=== PATIENT | female | born 1965 | race Caucasian/White ===

== ENCOUNTER → 2019-09-16 12:24 | Outpatient (BNVA) | payer MEDICARE, MEDICAID, SELFPAY | PROVIDERS: Family Provider Family Medicine; Visit Provider Specialist | DX: G40.909 Epilepsy, unspecified, not intractable, without status epilepticus (principal); F41.9 Anxiety disorder, unspecified; F32.9 Major depressive disorder, single episode, unspecified | CPT/HCPCS: 99213 ==

== ENCOUNTER → 2019-09-18 10:20 | Outpatient (BNVA) | payer MEDICARE, MEDICAID, SELFPAY | PROVIDERS: Family Provider Family Medicine; Visit Provider Nurse Practitioner Psychiatric/Mental Health | DX: F33.41 Major depressive disorder, recurrent, in partial remission (principal); F41.8 Other specified anxiety disorders; F80.0 Phonological disorder; F41.1 Generalized anxiety disorder | CPT/HCPCS: 99214 ==

== ENCOUNTER → 2019-11-28 07:39 | Outpatient (BNVA) | payer MEDICARE, MEDICAID, SELFPAY | PROVIDERS: Family Provider Family Medicine; Visit Provider Nurse Practitioner Psychiatric/Mental Health | DX: F33.41 Major depressive disorder, recurrent, in partial remission (principal); F80.0 Phonological disorder; F41.1 Generalized anxiety disorder; F41.8 Other specified anxiety disorders | CPT/HCPCS: 99214 ==

== ENCOUNTER → 2020-01-23 07:33 | Outpatient (BNVA) | payer MEDICARE, MEDICAID, SELFPAY | PROVIDERS: Family Provider Family Medicine; Visit Provider Nurse Practitioner Psychiatric/Mental Health | DX: F33.41 Major depressive disorder, recurrent, in partial remission (principal); F41.8 Other specified anxiety disorders; F80.0 Phonological disorder; F41.1 Generalized anxiety disorder | CPT/HCPCS: 99214 ==

== ENCOUNTER 2020-04-23 12:46 | Outpatient (CLI) | payer MEDICARE, MEDICAID, SELFPAY ==
--- NOTE | 2020-04-23 12:54 | MM_ITS ---
WS: [id number] SCREENING DIGITAL MAMMOGRAM WITH CAD HISTORY: SCREENING COMPARISON: 03/04/2019, 02/21/2018 and 02/16/2017 Bilateral CC and MLO views submitted. Computer aided detection analyzed. Breast composition: The breasts are heterogeneously dense, which may obscure small masses. Partially visualized 14 mm asymmetry in the lateral LEFT breast on the CC projection only. Not definitely prese nt on prior studies. No additional abnormalities are identified. MM/[place] [id number] IMPRESSION: BI-RADS: 0-Incomplete: Need additional imaging evaluation FOLLOW UP: Need Additional Imaging LEFT breast: Spot compression views (CC and MLO). True ML. Ultrasound to follow if abnormality persists.
== END 2020-04-23 12:47 | disposition home or self-care (01) ==
LOC: RADSHAW 12:49
PROVIDERS: PCP Family Medicine; Visit Provider Family Medicine
DX: Z12.31 Encounter for screening mammogram for malignant neoplasm of breast (principal); N64.89 Other specified disorders of breast
CPT/HCPCS: 77067

== ENCOUNTER → 2020-05-06 09:49 | Outpatient (BNVA) | payer MEDICARE, MEDICAID, SELFPAY | PROVIDERS: PCP Family Medicine; Visit Provider Nurse Practitioner Psychiatric/Mental Health | DX: F33.41 Major depressive disorder, recurrent, in partial remission (principal); F41.8 Other specified anxiety disorders; F80.0 Phonological disorder; F41.1 Generalized anxiety disorder | CPT/HCPCS: 99214 ==

== ENCOUNTER 2020-05-12 08:35 | Outpatient (CLI) | payer MEDICARE, MEDICAID, SELFPAY ==
--- NOTE | 2020-05-12 08:40 | US_ITS ---
WS: [id number] ADDITIONAL VIEWS LEFT MAMMOGRAM LEFT BREAST ULTRASOUND HISTORY: LT BREAST ASYMMETRY COMPARISON: 04/23/2020, 03/04/2019 LEFT MAMMOGRAM: Spot compression views and true ML. Lobulated soft tissue mass is partially obscured at 3:00 LEFT breast. Anterior mass measures 13 mm. LEFT BREAST ULTRASOUND 2-D and color Doppler imaging submitted. Soft tissue mass with a small cystic region at 3:00, 1 cm from the nipple. Marked increased vascularity. Soft tissue extends beyond the confines of the mass into the duct. Mass measures 1.3 x 1.6 x 1.2 cm. US/US breast LT limited* [id number] IMPRESSION: BI-RADS: 4-Suspicious Finding-Biopsy Should Be Considered FOLLOW UP: Biopsy Recommended Ultrasound-guided biopsy recommended LEFT breast mass at 3:00. Notified Hernán Driver MD at 05/12/2020 9:25 AM.
== END 2020-05-12 08:36 | disposition home or self-care (01) ==
LOC: RADSHAW 08:38
PROVIDERS: PCP Family Medicine; Visit Provider Family Medicine
DX: N64.89 Other specified disorders of breast (principal); N63.25 Unspecified lump in the left breast, overlapping quadrants
CPT/HCPCS: 76642; 77065

== ENCOUNTER 2020-05-29 12:08 | Outpatient (CLI) | payer MEDICARE, MEDICAID, SELFPAY ==
--- NOTE | 2020-05-29 12:15 | US_ITS ---
WS: [id number] ULTRASOUND-GUIDED LEFT BREAST BIOPSY CLINICAL INFORMATION: L BREAST MASS COMPARISON: None. FINDINGS: The procedure including risks, benefits, and complications were discussed with the patient who agreed to proceed. Using sterile technique patient was prepped and draped in the usual sterile fashion. Aft er 1% lidocaine utilizing real-time ultrasound guidance 5 14-gauge cores were obtained of the left br east lesion at the 3 o'clock position. Subsequently a titanium clip was placed in the biopsy cavity. No immediate complications. Pathology demonstrates Breast, left, 3 o'clock, biopsy: -Low grade papillary neoplasm. US/[place] [id number] IMPRESSION: 1. Uncomplicated ultrasound-guided left breast biopsy. 2. The pathology demonstrates low-grade papillary neoplasm. 3. Recommend wire localization with surgical excision. BI-RADS: 6-Known Biopsy-Proven Malignancy FOLLOW UP: Surgical Biopsy Recommended Recommend BREAST SURGERY consultation for excision of the papillary neoplasm.
== END 2020-05-29 12:09 | disposition home or self-care (01) ==
LOC: RAD 12:12
PROVIDERS: PCP Family Medicine; Visit Provider Family Medicine
DX: N63.25 Unspecified lump in the left breast, overlapping quadrants (principal)
CPT/HCPCS: 19083; 88305

== ENCOUNTER 2020-06-16 08:47 | Outpatient (CLI) | payer MEDICARE, MEDICAID, SELFPAY ==
--- NOTE | 2020-06-16 12:31 | ONC CON_ITS ---
Dr. Pacheco New Patient Note Patient: Kristyn Cason Unit #: [id number]: 1965 Dicatated By: Ian Pacheco M.D.Date of Visit: Jun 16, 2020 Onc MED New Patient/Consult Referring Physician: Dr. SEN QUIGLEY M.D. Chief Complaint: Breast cancer. 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 This patient has a history of cerebral palsy with bilateral occipital encephalomalacia, developmental disorder, and focus-based epilepsy. She also has congenital deafness. She presented with an abnormal screening mammogram. That study, from 04/23/2020, was BI-RADS 0, with finding of a partially visualized 14 mm asymmetry in the lateral left breast, noted on the CC projection only. Her diagnostic mammogram and left breast ultrasound on 05/12/2020 was BI-RADS 4, suspicious. The mammogram showed a lobulated soft tissue mass at the 3 o'clock position. By ultrasound, it showed increased vascularity with soft tissue extending beyond the confines of the mass into the duct. It measured 1.3 x 1.6 x 1.2 cm. On 05/29/2020 she underwent ultrasound directed core needle biopsy. Pathology was consistent with low-grade papillary neoplasm. The tumor was ER positive at 98%, ME positive at 75%, and negative for overexpression of HER-2/leslie, 1+ by IHC and amplification ratio by FISH of 0.9 with 1.8 HER-2 copies/cell. The Ki-67 was favorable at 2%. She has been feeling okay. She does complain that she is tired. She is fairly active. Her ECOG score is 2. She has good appetite. She has no fever. She recently started having hot flashes after stopping estradiol. It is unclear exactly how long she had been taking it. She has a prior history of hysterectomy, but without oophorectomy. She apparently did have one , which resulted in a miscarriage. She does not complain of shortness of breath or cough. She has had some pain in the upper left chest area. She has no GI/ complaints other than occasional, mild constipation. She has no significant joint or bone pain. She does not complain of headaches, though she does have a history of chronic migraine. She has no focal neurologic symptoms. She has anxiety and depression, which appears to be adequately managed with her medication. Past Medical History: Her medical history includes anxiety, cerebral palsy with bilateral occipital encephalomalacia, congenital deafness, developmental disorder, focus-based epilepsy, gastroesophageal reflux disease, hypertension, and migraine headaches. Past Surgical History: Her surgical/procedural history includes cholecystectomy, cochlear implant, and hysterectomy without oophorectomy for endometriosis. Medications: Acetaminophen Extra Strength 2 Tablet (of 500 mg) Oral PRN, Bismuth Subsalicylate 30 mL (of 525 mg/30mL) Suspension Oral PRN, Erythromycin 1 (0.5 %) Gel (jelly) Topical daily, lamoTRIgine ER 1 Tablet (of 300 mg) Tablet SR 24 HR Oral daily, Mirtazapine 1 Tablet (of 30 mg) Oral daily, Mucus+Chest Congestion 10 mL (of 200 mg/10mL) Liquid Oral PRN, Kathi-Colace 1 Tablet (of 8.6-50 mg) Oral PRN, Singulair 1 Tablet (of 10 mg) Oral daily, Venlafaxine HCl ER 1 Capsule (of 37.5 mg) Capsule SR 24 HR Oral b.i.d. Allergies: No Known Allergies. Social History: Ms. Cason is . She had smoked in the past. She quit in 1988. She has had just rare alcohol use. Family History: Father had diabetes and of heart attack. Mother had COPD. A brother committed suicide. There is no known family history of breast or ovarian cancer. Review Of Symptoms: Constitutional - She says she feels tired. Appetite is good and weight is stable. No fever. She has been having hot flashes since stopping estradiol. ECOG score is 2, Eyes - No change in vision, ENMT - She has congenital hearing loss. She has some allergy related sinus symptoms. No mouth sores. No sore throat or difficulty swallowing, Hematologic/Lymphatic - No abnormal bruising or bleeding, Respiratory - No shortness of breath. No cough. She sometimes has pain in her upper left chest. No hemoptysis, Cardiovascular - No angina pain. No palpitations, Gastrointestinal - No nausea or vomiting. No heartburn or acid reflux. She has occasional lower abdominal discomfort with constipation, relieved with stool softeners. No blood in the stool or black stools, Genitourinary (F) - No dysuria or hematuria. No urinary frequency. No urgency or incontinence, Musculoskeletal - No joint or bone pain, Integumentary - No skin rash, Neurologic - She has history of chronic migraine. No dizziness. No numbness or tingling. No other focal neurologic symptoms, Psychiatric - She is on medication for anxiety and depression. No insomnia. Vital Signs: Performed on Jun 16, 2020 10:26: 0, 27.33, 1.69 sq.m, 62.00 in, 95 % (LOW), 83 /min, 22 /min, 156/72 mm(hg) (HIGH), 97.7 F (LOW), and 149.4 lbs (HIGH). Physical Examination: Constitutional - She appears to be in good general health. She is hard of hearing, Eyes - Sclerae nonicteric. Conjunctivae clear, ENMT - No lesions noted in the oral cavity, Neck - No mass or thyromegaly, Hematologic/Lymphatic - No cervical or clavicular adenopathy, Respiratory - Lungs are clear with good air movement bilaterally, Cardiovascular - Heart rhythm is regular. There is no murmur, gallop, or rub noted, Breasts - There are no breast masses noted. There is no axillary adenopathy, Abdomen - Soft. Liver and spleen are not enlarged. There is no abdominal mass or ascites noted and there is no inguinal adenopathy, Back/Spine - No spine or CVA tenderness noted, Extremities - No edema. Pedal pulses are palpable bilaterally, Integumentary - No rashes. No suspicious skin lesions noted, Neurologic - No focal neurologic deficits noted. Impression: 1. 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 2. She underwent ultrasound directed core needle biopsy of the left breast on 05/29/2020. Her other medical illnesses include: 3. Hypertension. 4. GERD. 5. History of chronic migraine. 6. Cerebral palsy with bilateral occipital encephalomalacia. 7. Developmental disorder. 8. Focus-based epilepsy. 9. Congenital deafness. 10. Anxiety/depression. Plan: The pathology results and clinical implications were discussed with the patient and with her legal guardian. After discussion with the pathologist, this does not appear to represent invasive breast cancer. As such, her management will be limited to lumpectomy alone, though any further hormone replacement therapy should be avoided. I will arrange for referral to Dr. Rivera for the lumpectomy. She can just continue regular follow-up with Dr. Quigley and with Dr. Rivera. I will plan to see her again only as needed. Signed By: Ian Pacheco M.D. <<Signature on File>>
== END 2020-06-16 08:48 | disposition home or self-care (01) ==
LOC: ONCMED 08:53
PROVIDERS: PCP Family Medicine; Visit Provider Internal Medicine Hematology & Oncology
DX: C50.812 Malignant neoplasm of overlapping sites of left female breast (principal); Z17.0 Estrogen receptor positive status [ER+]; I10 Essential (primary) hypertension; K21.9 Gastro-esophageal reflux disease without esophagitis; G43.909 Migraine, unspecified, not intractable, without status migrainosus; G80.9 Cerebral palsy, unspecified; Q04.8 Other specified congenital malformations of brain; F89 Unspecified disorder of psychological development; G40.109 Localization-related (focal) (partial) symptomatic epilepsy and epileptic syndromes with simple partial seizures, not intractable, without status epilepticus; H90.3 Sensorineural hearing loss, bilateral; F41.9 Anxiety disorder, unspecified; F32.9 Major depressive disorder, single episode, unspecified
CPT/HCPCS: 99205

== ENCOUNTER → 2020-07-11 09:29 | Outpatient (BNVA) | payer MEDICARE, MEDICAID, SELFPAY | PROVIDERS: PCP Family Medicine; Visit Provider Surgery | DX: Z20.828 Contact with and (suspected) exposure to other viral communicable diseases (principal); Z01.812 Encounter for preprocedural laboratory examination | CPT/HCPCS: 87635 ==

== ENCOUNTER 2020-07-16 07:15 | Day surgery (SDC) | payer MEDICARE, MEDICAID, SELFPAY ==
[2020-07-15 13:34] VITALS: BMI 27.8
--- NOTE | 2020-07-16 | US_ITS ---
WS: [id number] ULTRASOUND-GUIDED LEFT BREAST NEEDLE LOCALIZATION HISTORY: Mass LEFT breast 3:00. Procedure, risks and complications were explained to the patient. Consent is obtained. Skin is cleansed with ChloraPrep and anesthetized with 1% buffered lidocaine. Needle and guidewire pl aced to the area of concern with no complications. Ultrasound guidance performed during the needle lo calization. Guidewire is left within the lesion. Guidewire secured and no complications encountered. Patient is being transported to the OR suite. Ultrasound LEFT breast specimen reveals the mass is present and the localization wire with tip. RECOMMENDATIONS: Follow-up with Dr. Rivera. US/US breast surgical specimen IMPRESSION: 1. Uncomplicated LEFT breast wire localization of the mass at 3:00. 2. Breast mass is within the specimen. PATHOLOGY RESULTS: Invasive papillary carcinoma. Margins are negative. Lymphova scular invasion is identified.
--- NOTE | 2020-07-16 | US_ITS ---
WS: [id number] ULTRASOUND-GUIDED LEFT BREAST NEEDLE LOCALIZATION HISTORY: Mass LEFT breast 3:00. Procedure, risks and complications were explained to the patient. Consent is obtained. Skin is cleansed with ChloraPrep and anesthetized with 1% buffered lidocaine. Needle and guidewire pl aced to the area of concern with no complications. Ultrasound guidance performed during the needle lo calization. Guidewire is left within the lesion. Guidewire secured and no complications encountered. Patient is being transported to the OR suite. Ultrasound LEFT breast specimen reveals the mass is present and the localization wire with tip. RECOMMENDATIONS: Follow-up with Dr. Rivera. US/[place] [id number] IMPRESSION: 1. Uncomplicated LEFT breast wire localization of the mass at 3:00. 2. Breast mass is within the specimen. PATHOLOGY RESULTS: Invasive papillary carcinoma. Margins are negative. Lymphova scular invasion is identified.
--- NOTE | 2020-07-16 | US_ITS ---
WS: [id number] ULTRASOUND-GUIDED LEFT BREAST NEEDLE LOCALIZATION HISTORY: Mass LEFT breast 3:00. Procedure, risks and complications were explained to the patient. Consent is obtained. Skin is cleansed with ChloraPrep and anesthetized with 1% buffered lidocaine. Needle and guidewire pl aced to the area of concern with no complications. Ultrasound guidance performed during the needle lo calization. Guidewire is left within the lesion. Guidewire secured and no complications encountered. Patient is being transported to the OR suite. Ultrasound LEFT breast specimen reveals the mass is present and the localization wire with tip. RECOMMENDATIONS: Follow-up with Dr. Rivera. US/US breast surgical specimen IMPRESSION: 1. Uncomplicated LEFT breast wire localization of the mass at 3:00. 2. Breast mass is within the specimen. PATHOLOGY RESULTS: Invasive papillary carcinoma. Margins are negative. Lymphova scular invasion is identified.
[2020-07-16 07:34] VITALS: BP 155/83; PULSE 75; RESP 16; TEMP 36.4; O2SAT 95
[2020-07-16] MEDS: sodium chloride 0.9% 1,000 ML 30 ML IV (07:52)
--- NOTE | 2020-07-16 08:55 | W.PM.OPSUD ---
Surgery/Procedure H&P Update DATE OF PROCEDURE: July 16, 2020 DATE H&P PERFORMED: 06/22/20 H&P UPDATE INFORMATION: No changes to prior documentation PLANNED PROCEDURE: Operation Date: 07/16/20 09:40 Proposed Procedures p Left breast lumpectomy following needle localization R92.8 [id number](Left) - Raul Rivera MD s Breast Biopsy Needle Localization(Left) - Raul Rivera MD
--- NOTE | 2020-07-16 09:07 | ANES.PREANE2 ---
Pre-Anesthetic Assessment Pre-Anesthetic Assessment: Height/Weight: Height 1.57 m Weight 68.946 kg Temp Pulse Resp BP Pulse Ox 97.6 F 75 16 155/83 95 07/16/20 07:34 07/16/20 07:34 07/16/20 07:34 07/16/20 07:34 07/16/20 07:34 Preop Diagnosis: Breast lump Proposed Procedure: Operation Date: 07/16/20 09:40 Proposed Procedures p Left breast lumpectomy following needle localization R92.8 88442(Left) - Raul Rivera MD s Breast Biopsy Needle Localization(Left) - Raul Rivera MD Familial anesthetic complications: None, per caregiver Hx obtained from Lynda malin, caregiver Was Beta Heath taken within 24 hours: N/A Last intake: Intake Last Liquid Date 07/15/20 Last Liquid Time 19:00 Last Solid Date 07/15/20 Last Solid Time 19:00 Social: Social History: No alcohol and No tobacco Exam: Pre-Anes Outpt Exam: alert, oriented x 3, clear to auscultation bilaterally and regular rate & rhythm Airway: Cervical ROM: WNL Additional comments: caregiver unsure of status of patient's teeth Neuropsych: Neuropsych: Anxiety, Depression and Seizure Comments: cerebral palsy Anesthetic Plan: ASA status: 3 Anesthesia: General Risk of > 500 ml blood loss (7ml/kg in children): No Meds/Allergies Current Medications: Current Medications Generic Name Dose Route Start Last Admin Trade Name Freq PRN Reason Stop Dose Admin Sodium Chloride 1,000 mls @ 30 ml s/hr 07/15/20 09:15 07/16/20 07:52 Sodium Chloride 0.9% IV 07/16/20 09:14 30 mls/hr .Q24H VINNIE Administration PFSH Anesthesia PFSH: Medical History (Updated 09/18/19 @ 11:21 by NORM Miller) Generalized anxiety disorder Impaired speech articulation Major depressive disorder, recurrent episode, in partial remission with anxious distress Family History Denies family history of Diabetes CAD (coronary artery disease) Cancer Hypertension Stroke Social History (Updated 09/18/19 @ 10:58 by Luci Diaz LPN) Smoking and tobacco status: former smoker Alcohol intake: never History of recent travel: No Data Anesthesia Cardiac Studies: No Data to Display
--- NOTE | 2020-07-16 10:47 | P.OP_ITS ---
Operative Report Date of procedure: July 16, 2020 Pre-op Diagnosis: Papillary lesion of left breast. Post-op diagnosis: same Procedure Done: Left breast lumpectomy following preoperative needle localization. Specimens removed/disposition: Left breast lumpectomy specimen. Long suture anteriorly, short suture medially. Surgeon: Raul Rivera Anesthesia: MAC Estimated blood loss (mL): 5 Complications: None. Condition: stable Disposition: same day Procedure: The patient was brought to the operating room and was placed in a supine position on the operating room table. A monitored anesthetic was induced. The left breast was prepped and draped in a sterile fashion, taking care not to disturb the localization wire which had been placed in radiology preoperatively. A combination of 1% lidocaine and 0.5% bupivacaine with 1- 200,000 parts epinephrine was used for local anesthesia throughout the procedure. A somewhat oblique incision was carried out lateral to the areola but medial to the insertion point of the localization wire. Cautery was used to enter the breast tissue and the localization wire was brought into the incision. The wire was grasped with the surrounding breast tissue using an Allis clamp and a combination of cautery and sharp dissection were used to remove the tissue around the wire. There was quite a bit of fibrocystic appearing tissue med ially. The specimen was eventually completely excised with the wire intact. The specimen was marked with a long suture anteriorly and a short suture medially for pathologic orientation. The wound was irrigated with saline and some small bleeding points were controlled with cautery. The skin was reapproximated using a running subcuticular suture of 4-0 Vicryl. Benzoin and Steri-Strips were placed over the incision and a sterile bandage followed. The patient was taken to the recovery area in stable condition postoperatively.
[2020-07-16 10:53] VITALS: BP 144/81; PULSE 80; RESP 16; TEMP 36.1; O2SAT 94
[2020-07-16 11:03] VITALS: BP 174/95; PULSE 81; RESP 18; O2SAT 95
== END 2020-07-16 11:25 | disposition home or self-care (01) ==
PROVIDERS: PCP Family Medicine; Visit Provider Surgery
PROC: (CPT 19301; principal; 2020-07-16 09:40)
DX: C50.912 Malignant neoplasm of unspecified site of left female breast (principal); F41.9 Anxiety disorder, unspecified; F33.9 Major depressive disorder, recurrent, unspecified; Z87.891 Personal history of nicotine dependence
CPT/HCPCS: 19301; 12345; 19285; 88305; J0690; J2704; J3010; J3490; J7030

== ENCOUNTER → 2020-09-11 10:49 | Outpatient (BNVA) | payer MEDICARE, MEDICAID, SELFPAY | PROVIDERS: PCP Family Medicine; Visit Provider Surgery | DX: Z20.822 Contact with and (suspected) exposure to COVID-19 (principal) | CPT/HCPCS: 87635 ==

== ENCOUNTER → 2020-09-14 10:13 | Outpatient (BNVA) | payer MEDICARE, MEDICAID, SELFPAY | PROVIDERS: Family Provider Family Medicine; Visit Provider Specialist | DX: G40.109 Localization-related (focal) (partial) symptomatic epilepsy and epileptic syndromes with simple partial seizures, not intractable, without status epilepticus (principal); Z87.891 Personal history of nicotine dependence | CPT/HCPCS: 99213 ==

== ENCOUNTER 2020-09-17 08:26 | Day surgery (SDC) | payer MEDICARE, MEDICAID, SELFPAY ==
--- NOTE | 2020-09-17 08:46 | NM_ITS ---
WS: [id number] SENTINEL NODE TECHNIQUE: sentinel node injection CLINICAL INFORMATION: Breast biopsy COMPARISON: None. PROCEDURE: The procedure including risks, benefits, and complications were discussed; the patient agr eed to proceed. Patient was prepped and draped in usual sterile fashion. Subsequently, 1% lidocaine p reservative-free was administered at the 12:00, 3:00, 6:00, and 9:00 o'clock positions for local anes thesia. Subsequently, 4 aliquots of filtered technetium 99m sulfur colloid was injected into the subc utaneous soft tissues. A total dose of 1.1 mCi was administered. Patient tolerated the procedure well with no immediate complications. MD/MD sentinel node inject [id number] IMPRESSION: Uncomplicated LEFT breast sentinel node injection with a total dose of 1.1 mCi.
[2020-09-17 08:51] VITALS: TEMP 36.8
[2020-09-17 08:54] VITALS: BP 182/84; PULSE 82; RESP 18; TEMP 36.8; O2SAT 96
[2020-09-17 09:19] VITALS: BMI 26.3
[2020-09-17] MEDS: sodium chloride 0.9% 1,000 ML 30 ML IV (09:20)
--- NOTE | 2020-09-17 09:43 | W.PM.OPSUD ---
Surgery/Procedure H&P Update DATE OF PROCEDURE: September 17, 2020 DATE H&P PERFORMED: 09/08/20 H&P UPDATE INFORMATION: No changes to prior documentation PREOP DIAGNOSIS: Invasive papillary carcinoma of left breast. PLANNED PROCEDURE: Operation Date: 09/17/20 10:45 Proposed Procedures p left Sentinal Lymph Node Biopsy [id number] C50.412(Left) - Raul Rivera MD
--- NOTE | 2020-09-17 10:23 | ANES.PREANE2 ---
Pre-Anesthetic Assessment Pre-Anesthetic Assessment: Height/Weight: Height 1.57 m Weight 65.317 kg Temp Pulse Resp BP Pulse Ox 98.2 F 82 18 182/84 96 09/17/20 08:54 09/17/20 08:54 09/17/20 08:54 09/17/20 08:54 09/17/20 08:54 Preop Diagnosis: Invasive papillary carcinoma of left breast. Proposed Procedure: Operation Date: 09/17/20 10:45 Proposed Procedures p left Sentinal Lymph Node Biopsy 58226 C50.412(Left) - Raul Rivera MD Was Beta Heath taken within 24 hours: N/A Last intake: Intake Last Liquid Date 09/16/20 Last Liquid Time 19:00 Last Solid Date 09/16/20 Last Solid Time 15:00 Social: Social History: No alcohol and No tobacco Exam: Pre-Anes Outpt Exam: alert, oriented x 3, clear to auscultation bilaterally and regular rate & rhythm Airway: Submandibular: WNL Cervical ROM: WNL MP: 3 Dentition: Full Pulmonary: Pulmonary: Asthma Neuropsych: Neuropsych: Anxiety, Depression and Seizure Comments: Speech issue Anesthetic Plan: ASA status: 3 Anesthesia: MAC Risk of > 500 ml blood loss (7ml/kg in children): No Meds/Allergies Current Medications: Current Medications Generic Name Dose Route Start Last Admin Trade Name Freq PRN Reason Stop Dose Admin Sodium Chloride 1,000 mls @ 30 ml s/hr 09/17/20 08:45 09/17/20 09:20 Sodium Chloride 0.9% IV 09/18/20 08:44 30 mls/hr .Q24H VINNIE Administration PFSH Anesthesia PFSH: Medical History Generalized anxiety disorder Impaired speech articulation Major depressive disorder, recurrent episode, in partial remission with anxious distress Family History Denies family history of Diabetes CAD (coronary artery disease) Cancer Hypertension Stroke Social History Smoking and tobacco status: former smoker Alcohol intake: never History of recent travel: No Data Anesthesia Cardiac Studies: No Data to Display
--- NOTE | 2020-09-17 10:41 | PM.OP ---
Operative Report Date of procedure: September 17, 2020 Pre-op Diagnosis: Invasive papillary carcinoma of left breast. Post-op diagnosis: same Procedure Done: Left axillary sentinel lymph node biopsy. Specimens removed/disposition: Left axillary sentinel lymph node(s). Surgeon: Raul Rivera Anesthesia: MAC Estimated blood loss (mL): 3 Complications: None. Condition: stable Disposition: same day Procedure: The patient was brought to the operating room and was placed in a supine position on the operating room table. The patient had undergone radioactive tracer injection in radiology preoperatively. A monitored anesthetic was induced. The left axilla was prepped and draped in a sterile fashion. The gamma probe was used to find the hot spot in the axilla. A combination of 1% lidocaine and 0.5% bupivacaine with 1-200,000 parts epinephrine was used for local anesthesia throughout the procedure. A curvilinear incision was carried out over the hot spot of the axilla centrally just underneath the hairbearing area. Cautery and blunt dissection were used to traverse the subcutaneous tissue and the axilla was entered. Using a combination of inspection and the gamma probe, the hot lymph node was found and was completely removed using blunt dissection and cautery. The lymph node registered counts of 132 on the field. Further inspection of the axilla with the gamma probe revealed counts less than 12. Even upon inspecting this area it appeared that there was lymphatic channels that were traveling up to the lymph node that was already removed. The wound was irrigated with saline. A suture of 3-0 Vicryl was used to bring the deeper tissue together and the skin was approximated using a running subcuticular suture of 4-0 Vicryl. Benzoin and Steri-Strips were placed over the wound and a sterile bandage followed. The patient was taken to the recovery area in stable condition postoperatively.
[2020-09-17 11:22] VITALS: BP 146/91; PULSE 96; RESP 18; TEMP 36.8; O2SAT 100
[2020-09-17 11:44] VITALS: BP 140/80; PULSE 78; RESP 18; TEMP 36.8; O2SAT 97
--- NOTE | 2020-09-17 12:06 | ANE.PACU2 ---
Inpatient post-anesthesia follow up: Airway intact: Yes Vital signs: Temperature 98.2 F Pulse Rate 78 Respiratory Rate 18 Blood Pressure 140/80 Pulse Oximetry 97 Oxygen Delivery Me thod Room Air Oxygen Flow Rate Fraction of Inspir ed Oxygen Hydration adequate: Yes Nausea and vomiting: No Pain level: 1 Mental status: Baseline
== END 2020-09-17 12:10 | disposition home or self-care (01) ==
PROVIDERS: Visit Provider Surgery
PROC: (CPT 38500; principal; 2020-09-17 10:45)
DX: C50.412 Malignant neoplasm of upper-outer quadrant of left female breast (principal); J45.909 Unspecified asthma, uncomplicated; Z87.891 Personal history of nicotine dependence
CPT/HCPCS: 38500; 12345; 38792; 88305; 96365; A9541; J0690; J3010; J3490; J7030

== ENCOUNTER 2020-10-15 14:26 | Outpatient (CLI) | payer MEDICARE, MEDICAID, SELFPAY ==
--- NOTE | 2020-10-15 15:09 | N.ONRAD NP_ITS ---
Radiation Oncology Consultation Patient Name: Kristyn Calderon Date of : 1965 Date of Service: 10/15/2020 Attending Physician: Jb Pike M.D. Kristyn Calderon was seen in consultation this afternoon at the request of Ian Pacheco M.D. for consideration of adjuvant radiotherapy for the management of her recently diagnosed early stage breast cancer. A screening mammogram (personally reviewed in [facility]) performed in July 2020 identified a 1.4 cm asymmetry in the lateral aspect of the left breast. Diagnostic mammography confirmed a persistent mass in the upper-outer quadrant of the left breast. Ultrasonography demonstrated at the 3 o'clock position in the left breast, 1 cm from the nipple, a mass measuring 1.3 cm x 1.6 cm x 1.2 cm. An ultrasound-guided biopsy completed on May 29, 2020 diagnosed a low-grade papillary neoplasm. The breast cancer profile was positive for estrogen receptor (98%), and progesterone receptor (75%), and negative for HER-2 (ratio of 0.9). The Ki-67 was 2%. A left partial mastectomy was performed by Tyshawn Rivera M.D. on July 16, 2020. The pathology report obtained in [facility] (and directly canvassed by [facility]) identified an 8 mm invasive papillary carcinoma. Surgical margins were negative. A sentinel lymph node biopsy was completed on September 17, 2020 harvesting one lymph node that was negative for metastasis. The patient presents for evaluation regarding adjuvant radiotherapy. I discussed the [place] [employer] on [employer] Staging and specifically the patient's pathologic stage IA (T1bN0) breast cancer, I also reviewed the classic study by the NSABP comparing mastectomy, lumpectomy, and lumpectomy with radiotherapy and the Early Breast Cancer Trialist Collaborative Group meta-analysis. She is aware that the addition of radiotherapy to lumpectomy provides improvement in local control and overall survival. Prior to beginning treatment, a planning CT scan will be acquired to delineate the clinical target volume. I anticipate a three week course of radiotherapy to the breast. The patient and her guardian have verbalized understanding and would like to proceed as recommended. Signed by: Dr. Jb Pike 10/15/2020 3:06:53 PM
== END 2020-10-15 14:27 | disposition home or self-care (01) ==
PROVIDERS: Visit Provider Radiology Radiation Oncology
DX: C50.412 Malignant neoplasm of upper-outer quadrant of left female breast (principal); Z17.0 Estrogen receptor positive status [ER+]; Z90.12 Acquired absence of left breast and nipple
CPT/HCPCS: 99215

== ENCOUNTER 2020-11-04 05:39 | Outpatient (RCR) | payer MEDICARE, MEDICAID, SELFPAY ==
--- NOTE | 2020-10-20 | CT_ITS ---
Radiation Therapy Planning CT images; total exam DLP: 484.75 mGy-cm MTDD
--- NOTE | 2020-10-26 13:46 | ONCRAD TMN_ITS ---
Radiation Oncology Treatment Management Note Patient Name: Kristyn Calderon Date of : 1965 Date of Service: 10/26/2020 Attending Physician: Jb Pike M.D. Kristyn Calderon is a 55 year-old white female diagnosed with a pathologic stage IA (T1bN0) low-grade invasive papillary carcinoma of the upper-outer quadrant of the left breast. The breast cancer profile was positive for estrogen receptor, progesterone receptor, and negative for HER-2. The Ki-67 was 2%. She has received 2.7 Gy of a prescribed 40 Gy delivered with a 3D conformal radiotherapy plan utilizing opposed tangential portal hoffman with mixed photon energies and a dynamic wedge. Upon review of systems, she denied any breast complaints to radiotherapy. On physical examination, the patient weighed 144 lbs. Her temperature was 98.1 ???F with a blood pressure of 157/81 mmHg. Her pulse was 67 bpm and her respiratory rate was 18. There was no erythema within the treatment hoffman of the left breast. Continue hypofractionated left breast radiotherapy as prescribed. Signed by: Dr. Jb Pike 10/26/2020 1:45:09 PM
--- NOTE | 2020-11-02 10:10 | ONCRAD TMN_ITS ---
Radiation Oncology Treatment Management Note Patient Name: Kristyn Calderon Date of : 1965 Date of Service: 11/02/2020 Attending Physician: Jb Pike M.D. Kristyn Calderon is a 55 year-old white female diagnosed with a pathologic stage IA (T1bN0) low-grade invasive papillary carcinoma of the upper-outer quadrant of the left breast. The breast cancer profile was positive for estrogen receptor, progesterone receptor, and negative for HER-2. The Ki-67 was 2%. She has received 16 Gy of a prescribed 40 Gy delivered with a 3D conformal radiotherapy plan utilizing opposed tangential portal hoffman with mixed photon energies and a dynamic wedge. Upon review of systems, she denied any breast complaints to radiotherapy. On physical examination, the patient weighed 144 lbs. Her temperature was 98.3 ???F with a blood pressure of 139/76 mmHg. Her pulse was 72 bpm and her respiratory rate was 22. There was no erythema within the treatment hoffman of the left breast. Continue hypofractionated left breast radiotherapy as planned. Signed by: Dr. bJ Pike 11/02/2020 10:09:34 AM
== END 2020-11-04 23:59 | disposition home or self-care (01) ==
LOC: ONCMED 05:39
PROVIDERS: Visit Provider Radiology Radiation Oncology
DX: Z51.0 Encounter for antineoplastic radiation therapy (principal); C50.412 Malignant neoplasm of upper-outer quadrant of left female breast; Z17.0 Estrogen receptor positive status [ER+]
CPT/HCPCS: 77280; 77295; 77300; 77334; 77387; 77412

== ENCOUNTER 2020-11-27 05:56 | Outpatient (RCR) | payer MEDICARE, MEDICAID, SELFPAY ==
--- NOTE | 2020-11-09 10:01 | ONCRAD TMN_ITS ---
Radiation Oncology Treatment Management Note Patient Name: Kristyn Calderon Date of : 1965 Date of Service: 11/09/2020 Attending Physician: Jb Pike M.D. Kristyn Calderon is a 55 year-old white female diagnosed with a pathologic stage IA (T1bN0) low-grade invasive papillary carcinoma of the upper-outer quadrant of the left breast. The breast cancer profile was positive for estrogen receptor, progesterone receptor, and negative for HER-2. The Ki-67 was 2%. She has received 29.3 Gy of a prescribed 40 Gy delivered with a 3D conformal radiotherapy plan utilizing opposed tangential portal hoffman with mixed photon energies and a dynamic wedge. Upon review of systems, she denied any breast complaints to radiotherapy. On physical examination, the patient weighed 144 lbs. Her temperature was 97.9 ???F with a blood pressure of 122/70 mmHg. Her pulse was 76 bpm and her respiratory rate was 18. There was no erythema within the treatment hoffman of the left breast. Continue hypofractionated left breast radiotherapy as prescribed. Signed by: Dr. Jb Pike 11/09/2020 9:59:58 AM
--- NOTE | 2020-11-27 09:53 | ONCRAD EPV_ITS ---
Radiation Oncology Follow-Up Note Patient Name: Kristyn Calderon Date of : 1965 Date of Service: 11/27/2020 Attending Physician: Jb Pike M.D. Kristyn Calderon returned to my office this morning for a routinely scheduled post radiotherapy follow-up appointment. She completed adjuvant left breast radiotherapy in November for the management of a pathologic stage IA (T1bN0) low-grade invasive papillary carcinoma of the upper-outer quadrant of the left breast. The breast cancer profile was positive for estrogen receptor, progesterone receptor, and negative for HER-2. The Ki-67 was 2%. Daily radiotherapy was administered between the dates of October 26, 2020 through November 13, 2020. A prescribed dose of 40 Gy was delivered in 15 fractions encompassing 19 elapsed days. On review of systems, she did not report any breast complaints. On physical examination, the patient weighed 143 lbs and her temperature was 98.6???F. Her blood pressure was 136/78 mmHg. The pulse was 67 bpm and her respiratory rate was 20 breaths per minute. Examination of the left breast did not reveal any significant erythema. In summary, Ms. Calderon returned for a routine post radiotherapy follow-up. She will continue follow-up as scheduled with her medical oncologist. Signed by: Dr. Jb Pike 11/27/2020 9:51:54 AM
== END 2020-12-04 23:59 | disposition home or self-care (01) ==
LOC: ONCMED 05:56
PROVIDERS: Visit Provider Radiology Radiation Oncology
DX: Z51.0 Encounter for antineoplastic radiation therapy (principal); C50.812 Malignant neoplasm of overlapping sites of left female breast; Z17.0 Estrogen receptor positive status [ER+]
CPT/HCPCS: 77014; 77336; 77387; 77412

== ENCOUNTER 2020-12-08 05:53 | Outpatient (RCR) | payer MEDICARE, MEDICAID, SELFPAY ==
[2020-12-08 09:49] LABS: Basophils % 0.6 %; Eosinophils # 0.1 10^3/uL (0.0-0.8); Eosinophils % 2.3 %; Hematocrit 45.7 % (37.0-47.0); Hemoglobin 14.7 g/dL (11.5-15.3); Lymphocytes # 1.4 10^3/uL (0.8-4.8); Lymphocytes % 28.9 %; Mean Corpuscular HGB Conc 32.2 g/dL (30.0-36.0); Mean Corpuscular Hemoglobin 28.2 pg (28.0-34.0); Mean Corpuscular Volume 87.5 fL (81-99); Mean Platelet Volume 9.2 fL (7.4-10.4); Monocytes # 0.5 10^3/uL (0.2-0.9); Monocytes % 9.3 %; Neutrophils # 2.83 10^3/uL (1.8-7.7); Neutrophils % 58.5 %; Nucleated Red Blood Cells % 0 %; Platelet Count 288 10^3/cmm (130-400); Red Blood Count 5.22 10^6/uL (4.1-5.3); White Blood Count 4.8 10^3/uL (4.0-10.0)
[2020-12-08 10:21] LABS: Alanine Aminotransferase 16 U/L (0-33); Albumin Level 4.2 g/dL (3.5-5.2); Alkaline Phosphatase 84 IU/L (35-105); Anion Gap 13.8 (5-19); Aspartate Amino Transferase 16 U/L (0-32); Blood Urea Nitrogen 14 mg/dL (6-20); Carbon Dioxide 26 mmol/L (22-29); Chloride 101 mmol/L (98-107); Follicle Stimulating Hormone 73.2 mIU/mL; Globulin 2.9 g/dL (1.3-4.6); Glomerular Filtration Rate 74.2 mL/min (90-130); Glucose 80 mg/dL (65-115); Luteinizing Hormone 35.5 mIU/mL (0.5-41.7); Osmolality Calculated 283 mOsm/kg (285-295); Potassium 3.8 mmol/L (3.5-5.1); Sodium 137 mmol/L (136-145); Total Bilirubin 0.3 mg/dL (0.15-1.2); Total Protein 7.1 g/dL (6.6-8.7)
--- NOTE | 2020-12-09 08:30 | ONC FU_ITS ---
Dr. Pacheco Patient Follow-Up Note Patient: Kristyn Cason Unit #: [id number]: 1965 Dicatated By: Ian Pacheco M.D.Date of Visit:December 08, 2020 Onc Med Follow-up/Prog Note Chief Complaint: Breast cancer. History of Present Illness: This is a 55 year-old woman with invasive papillary carcinoma of the left breast, stage IA (T1b, N0, M0), ER/CT positive and HER-2/leslie negative. She has a history of cerebral palsy with bilateral occipital encephalomalacia, developmental disorder, and focus-based epilepsy. She also has congenital deafness. She presented with an abnormal screening mammogram. That study, from 04/23/2020, was BI-RADS 0, with finding of a partially visualized 14 mm asymmetry in the lateral left breast, noted on the CC projection only. Her diagnostic mammogram and left breast ultrasound on 05/12/2020 was BI-RADS 4, suspicious. The mammogram showed a lobulated soft tissue mass at the 3 o'clock position. By ultrasound, it showed increased vascularity with soft tissue extending beyond the confines of the mass into the duct. It measured 1.3 x 1.6 x 1.2 cm. On 05/29/2020 she underwent ultrasound directed core needle biopsy. Pathology was consistent with low-grade papillary neoplasm. The tumor was ER positive at 98%, CT positive at 75%, and negative for overexpression of HER-2/leslie, 1+ by IHC and amplification ratio by FISH of 0.9 with 1.8 HER-2 copies/cell. The Ki-67 was favorable at 2%. I had seen her initially on 06/16/2020. Given the pathology findings, it appeared that her treatment could be limited to excision alone, and she underwent left breast lumpectomy on 07/16/2020. Pathology on the lumpectomy showed invasive papillary carcinoma measuring 0.8 cm in maximum diameter. The margins were free. In the setting of invasive papillary cancer, she was recommended to have axillary lymph node sampling, and she then underwent sentinel left axillary lymph node biopsy on 09/17/2020. There was no malignancy identified in 1 sentinel axillary lymph node. Pathologic staging was T1b, N0. She referred to Dr. Pike, and she then underwent radiation to the left breast. She completed treatment on 11/13/2020 to a total dose of 4000 cGy administered in 15 fractions. She tolerated the treatment well. She is seen for a follow-up visit. She has been feeling good. She really has no significant complaints. Her energy is okay. She is able to do light work. ECOG score is 1. She has good appetite. She has not had fever or night sweats. She does have some hot flashes. She has no shortness of breath, cough, or chest pain. She has no GI or complaints. She has no significant joint or bone pain. She does not complain of headache, and she has no focal neurologic symptoms. Medications: Acetaminophen Extra Strength 2 Tablet (of 500 mg) Oral PRN, Bismuth Subsalicylate 30 mL (of 525 mg/30mL) Suspension Oral PRN, Erythromycin 1 (0.5 %) Gel (jelly) Topical daily, lamoTRIgine ER 1 Tablet (of 300 mg) Tablet SR 24 HR Oral daily, Mirtazapine 1 Tablet (of 30 mg) Oral daily, Mucus+Chest Congestion 10 mL (of 200 mg/10mL) Liquid Oral PRN, Kathi-Colace 1 Tablet (of 8.6-50 mg) Oral PRN, Singulair 1 Tablet (of 10 mg) Oral daily, Venlafaxine HCl ER 1 Capsule (of 37.5 mg) Capsule SR 24 HR Oral b.i.d. Allergies: No Known Allergies. Vital Signs: Performed on December 08, 2020 08:57 Height - 62.00 in Weight - 140.6 lbs (LOW) BSA - 1.65 sq.m BMI - 25.72 Temperature - 97.5 F (LOW) Pulse - 83 /min Respiration - 18 /min BP - 126/79 mm(hg) O2 Sat - 96 % Pain - 0 Fatigue - 0 Physical Examination: Constitutional - She looks good generally, Eyes - Sclerae nonicteric. Conjunctivae clear, ENMT - No lesions noted in the oral cavity, Hematologic/Lymphatic - No cervical, clavicular, or axillary adenopathy, Respiratory - Lungs are clear with good air movement bilaterally, Cardiovascular - Heart rhythm is regular. There is no murmur, gallop, or rub noted, Abdomen - Soft. Liver and spleen are not enlarged. There is no abdominal mass or ascites noted and there is no inguinal adenopathy, Extremities - No edema, Neurologic - No focal neurologic deficits noted. Problem List: 1. Invasive papillary carcinoma of the left breast, stage IA (T1b, N0, M0), ER/CT positive and HER-2/leslie negative. She underwent ultrasound directed core needle biopsy of the left breast on 05/29/2020 followed by left breast lumpectomy on 07/16/2020 and sentinel left axillary lymph node biopsy on 09/17/2020. 2. She underwent radiation to the left breast, completed on 11/13/2020 to a total dose of 4000 cGy administered in 15 fractions. 3. Hypertension. 4. GERD. 5. History of chronic migraine. 6. Cerebral palsy with bilateral occipital encephalomalacia. 7. Developmental disorder. 8. Focus-based epilepsy. 9. Congenital deafness. 10. Anxiety/depression. Problems Addressed with this Encounter and Plan: Patient with invasive papillary carcinoma of the left breast, stage IA (T1b, N0, M0), ER/CT positive and HER-2/leslie negative. She underwent left breast lumpectomy on 07/16/2020. Pathology on the lumpectomy showed invasive papillary carcinoma measuring 0.8 cm in maximum diameter. The margins were free. In the setting of invasive papillary cancer, she was recommended to have axillary lymph node sampling, and she then underwent sentinel left axillary lymph node biopsy on 09/17/2020. There was no malignancy identified in 1 sentinel axillary lymph node. Pathologic staging was T1b, N0. She referred to Dr. Pike, and she then underwent radiation to the left breast. She completed treatment on 11/13/2020 to a total dose of 4000 cGy administered in 15 fractions. She tolerated the treatment well. She has now completed her primary treatment. With a hormone receptor positive T1b primary lesion she is given the option to also undergo adjuvant endocrine therapy, though it would be somewhat optional, as she appears to have very low risk disease. There would also be some benefit with reduction in the risk of contralateral breast cancer. She is agreeable to the treatment, which will include anastrozole 1 mg daily for 5 years. She will have baseline CBC and comprehensive metabolic profile today. In addition, I also will verify her menopausal status with FSH, LH, and estradiol levels. She will be scheduled for a follow-up visit in 3 months. Assuming she is tolerating the treatment with no adverse effects, we can then do with the issue of her bone health. She and her caregiver are advised that the anastrozole may cause joint pain as a side effect. Signed By: Ian Pacheco M.D. <<Signature on File>>
== END 2021-01-04 23:59 | disposition home or self-care (01) ==
LOC: ONCMED 05:53
PROVIDERS: Visit Provider Internal Medicine Medical Oncology
DX: C50.812 Malignant neoplasm of overlapping sites of left female breast (principal); Z17.0 Estrogen receptor positive status [ER+]; Z90.12 Acquired absence of left breast and nipple; I10 Essential (primary) hypertension; K21.9 Gastro-esophageal reflux disease without esophagitis; G43.919 Migraine, unspecified, intractable, without status migrainosus; G80.9 Cerebral palsy, unspecified; G93.89 Other specified disorders of brain; F89 Unspecified disorder of psychological development; G40.109 Localization-related (focal) (partial) symptomatic epilepsy and epileptic syndromes with simple partial seizures, not intractable, without status epilepticus; H90.3 Sensorineural hearing loss, bilateral; F41.9 Anxiety disorder, unspecified; F32.9 Major depressive disorder, single episode, unspecified; Z79.811 Long term (current) use of aromatase inhibitors; Z92.3 Personal history of irradiation
CPT/HCPCS: 36415; 80053; 82670; 83001; 83002; 85025; 99214

== ENCOUNTER 2021-03-16 15:41 | Outpatient (CLI) | payer MEDICARE, MEDICAID, SELFPAY ==
--- NOTE | 2021-03-29 06:20 | ONC FU_ITS ---
Dr. Pacheco Patient Follow-Up Note Patient: Kristyn Cason Unit #: [id number]: 1965 Dicatated By: Ian Pacheco M.D.Date of Visit:Mar 16, 2021 Onc Med Follow-up/Prog Note Chief Complaint: Breast cancer. History of Present Illness: This is a 55 year-old woman with invasive papillary carcinoma of the left breast, stage IA (T1b, N0, M0), ER/MI positive and HER-2/leslie negative. She had presented with an abnormal screening mammogram. That study, from 04/23/2020, was BI-RADS 0, with finding of a partially visualized 14 mm asymmetry in the lateral left breast, noted on the CC projection only. Her diagnostic mammogram and left breast ultrasound on 05/12/2020 was BI-RADS 4, suspicious. The mammogram showed a lobulated soft tissue mass at the 3 o'clock position. By ultrasound, it showed increased vascularity with soft tissue extending beyond the confines of the mass into the duct. It measured 1.3 x 1.6 x 1.2 cm. On 05/29/2020 she underwent ultrasound directed core needle biopsy. Pathology was consistent with low-grade papillary neoplasm. The tumor was ER positive at 98%, MI positive at 75%, and negative for overexpression of HER-2/leslie, 1+ by IHC and amplification ratio by FISH of 0.9 with 1.8 HER-2 copies/cell. The Ki-67 was favorable at 2%. I had seen her initially on 06/16/2020. Given the pathology findings, it appeared that her treatment could be limited to excision alone, and she underwent left breast lumpectomy on 07/16/2020. Pathology on the lumpectomy showed invasive papillary carcinoma measuring 0.8 cm in maximum diameter. The margins were free. In the setting of invasive papillary cancer, she was recommended to have axillary lymph node sampling, and she then underwent sentinel left axillary lymph node biopsy on 09/17/2020. There was no malignancy identified in 1 sentinel axillary lymph node. Pathologic staging was T1b, N0. She referred to Dr. Pike, and she then underwent radiation to the left breast. She completed treatment on 11/13/2020 to a total dose of 4000 cGy administered in 15 fractions. She tolerated the treatment well. She began adjuvant hormonal therapy with anastrozole 1 mg daily in December 2020. She has a history of cerebral palsy with bilateral occipital encephalomalacia, developmental disorder, and focus-based epilepsy. She also has congenital deafness. Her other medical illnesses include hypertension, GERD, chronic migraine, and anxiety/depression. She had smoked in the past. She quit in 1988. She is seen for a follow-up visit. She has been feeling okay. She does not have a lot of activity. ECOG score is 1. She has good appetite. She has not had fever. She has been feeling hot all the time and she has intermittent sweating. She has some allergy related sinus symptoms and she does have some associated chest congestion. She does not have cough. She gets short of breath with overexertion. She does not complain of chest pain. She does not complain of nausea, but she has been having acid reflux symptoms and the caregiver who is with her indicates that she burps constantly. She has chronic constipation with bowel movements typically at 2 to 4-day intervals. She has frequent urination. She is not having any significant joint or bone pain. She sometimes has headache. She does not complain of dizziness. She has no numbness/paresthesia or other focal neurologic symptoms. Medications: Acetaminophen Extra Strength 2 Tablet (of 500 mg) Oral PRN, Bismuth Subsalicylate 30 mL (of 525 mg/30mL) Suspension Oral PRN, Erythromycin 1 (0.5 %) Gel (jelly) Topical daily, lamoTRIgine ER 1 Tablet (of 300 mg) Tablet SR 24 HR Oral daily, Mirtazapine 1 Tablet (of 30 mg) Oral daily, Mucus+Chest Congestion 10 mL (of 200 mg/10mL) Liquid Oral PRN, Kathi-Colace 1 Tablet (of 8.6-50 mg) Oral PRN, Singulair 1 Tablet (of 10 mg) Oral daily, Venlafaxine HCl ER 1 Capsule (of 37.5 mg) Capsule SR 24 HR Oral b.i.d. Allergies: No Known Allergies. Vital Signs: Performed on Mar 16, 2021 16:04 Height - 62.00 in Weight - 143.4 lbs (HIGH) BSA - 1.66 sq.m BMI - 26.23 Temperature - 95.7 F (LOW) Pulse - 82 /min Respiration - 18 /min BP - 137/80 mm(hg) O2 Sat - 97 % Pain - 0 Fatigue - 5 Physical Examination: Constitutional - She looks pretty good generally, Eyes - Sclerae nonicteric. Conjunctivae clear, ENMT - No lesions noted in the oral cavity, Hematologic/Lymphatic - No cervical, clavicular, or axillary adenopathy, Respiratory - Lungs are clear with good air movement bilaterally, Cardiovascular - Heart rhythm is regular. There is no murmur, gallop, or rub noted, Abdomen - Soft. Liver and spleen are not enlarged. There is no abdominal mass or ascites noted and there is no inguinal adenopathy, Extremities - No edema, Neurologic - No focal neurologic deficits noted. Lab/Imaging: Test performed on December 08, 2020 09:08 Estradiol 5.0 pg/mL FSH 73.2 mIU/mL LH 35.5 mIU/mL Sodium 137 mmol/L Potassium 3.8 mmol/L Chloride 101 mmol/L CO2 26 mmol/L Anion Gap 13.8 BUN 14 mg/dL Creatinine 0.8 mg/dL Cr Clearance (Est) 79.0600 mL/min eGFR 74.2 mL/min Glucose 80 mg/dL Osmolality - Calculated 283 mOsm/kg Calcium 9.0 mg/dL Protein, Total 7.1 g/dL Albumin 4.2 g/dL Globulin 2.9 g/dL Bilirubin, Total 0.3 mg/dL ALT (SGPT) 16 U/L AST (SGOT) 16 U/L Alkaline Phosphatase 84 IU/L WBC 4.8 10 3/uL RBC 5.22 10 6/uL HGB 14.7 g/dL HCT 45.7 % MCV 87.5 fL MCH 28.2 pg MCHC 32.2 g/dL RDW 13.0 % Platelet Count 288 10 3/cmm MPV 9.2 fL Neutrophils 2.83 10 3/uL Lymphocytes 1.4 10 3/uL Monocytes 0.5 10 3/uL Eosinophils 0.1 10 3/uL Basophils 0.0 10 3/uL Neutrophil % 58.5 % Lymphocyte % 28.9 % Monocyte % 9.3 % Eosinophil % 2.3 % Basophils % 0.6 % NRBC % 0 % Problem List: 1. Invasive papillary carcinoma of the left breast, stage IA (T1b, N0, M0), ER/MI positive and HER-2/leslie negative. She underwent ultrasound directed core needle biopsy of the left breast on 05/29/2020 followed by left breast lumpectomy on 07/16/2020 and sentinel left axillary lymph node biopsy on 09/17/2020. 2. She underwent radiation to the left breast, completed on 11/13/2020 to a total dose of 4000 cGy administered in 15 fractions. 3. Hypertension. 4. GERD. 5. History of chronic migraine. 6. Cerebral palsy with bilateral occipital encephalomalacia. 7. Developmental disorder. 8. Focus-based epilepsy. 9. Congenital deafness. 10. Anxiety/depression. Problems Addressed with this Encounter and Plan: 1. Patient with invasive papillary carcinoma of the left breast, stage IA (T1b, N0, M0), ER/MI positive and HER-2/leslie negative. She underwent left breast lumpectomy on 07/16/2020. Pathology on the lumpectomy showed invasive papillary carcinoma measuring 0.8 cm in maximum diameter. The margins were free. In the setting of invasive papillary cancer, she was recommended to have axillary lymph node sampling, and she then underwent sentinel left axillary lymph node biopsy on 09/17/2020. There was no malignancy identified in 1 sentinel axillary lymph node. Pathologic staging was T1b, N0. She referred to Dr. Pike, and she then underwent radiation to the left breast. She completed treatment on 11/13/2020 to a total dose of 4000 cGy administered in 15 fractions. She tolerated the treatment well. She began adjuvant hormonal therapy with anastrozole in December 2020. She has been having some hot flashes and sweating with it, but she otherwise seems to be tolerating it well. She will continue anastrozole 1 mg daily. She will be scheduled for a follow-up visit in 6 months. 2. She has been having GERD symptoms. She also has chronic constipation. I am going to arrange for referral to Dr. Rivera for consideration of EGD and colonoscopy. Signed By: Ian Pacheco M.D. <<Signature on File>>
== END 2021-03-16 15:42 | disposition home or self-care (01) ==
LOC: ONCMED 15:48
PROVIDERS: PCP Family Medicine; Visit Provider Internal Medicine Medical Oncology
DX: C50.812 Malignant neoplasm of overlapping sites of left female breast (principal); Z17.0 Estrogen receptor positive status [ER+]; Z90.12 Acquired absence of left breast and nipple; I10 Essential (primary) hypertension; K21.9 Gastro-esophageal reflux disease without esophagitis; G43.919 Migraine, unspecified, intractable, without status migrainosus; G80.9 Cerebral palsy, unspecified; G93.89 Other specified disorders of brain; F89 Unspecified disorder of psychological development; G40.109 Localization-related (focal) (partial) symptomatic epilepsy and epileptic syndromes with simple partial seizures, not intractable, without status epilepticus; H90.3 Sensorineural hearing loss, bilateral; F41.9 Anxiety disorder, unspecified; F32.9 Major depressive disorder, single episode, unspecified; Z79.899 Other long term (current) drug therapy; Z79.811 Long term (current) use of aromatase inhibitors; Z92.21 Personal history of antineoplastic chemotherapy; Z92.3 Personal history of irradiation
CPT/HCPCS: 99214

== ENCOUNTER → 2021-04-23 10:04 | Outpatient (BNVA) | payer MEDICARE, MEDICAID, SELFPAY | PROVIDERS: PCP Family Medicine; Visit Provider Surgery | DX: Z01.812 Encounter for preprocedural laboratory examination (principal); Z20.822 Contact with and (suspected) exposure to COVID-19 | CPT/HCPCS: 87635 ==

== ENCOUNTER 2021-04-26 09:45 | Outpatient (CLI) | payer MEDICARE, MEDICAID, SELFPAY ==
--- NOTE | 2021-04-26 09:54 | MM_ITS ---
WS: [id number] DIAGNOSTIC BILATERAL DIGITAL MAMMOGRAM WITH CAD HISTORY: HX OF BREAST CA COMPARISON: 04/23/2020, 02/16/2016 Technique: CC, MLO and ML views. Breast composition: The breasts are heterogeneously dense, which may obscure small masses. New area of architectural distortion in the LEFT breast at the site of prior surgery. Otherwise no interval ch jeri. MM/[place] [address] IMPRESSION: BI-RADS: 2-Benign FOLLOW UP: 1 Year Follow-up
== END 2021-04-26 09:46 | disposition home or self-care (01) ==
LOC: RADSHAW 09:52
PROVIDERS: PCP Family Medicine; Visit Provider Internal Medicine Medical Oncology
DX: Z85.3 Personal history of malignant neoplasm of breast (principal)
CPT/HCPCS: 77066

== ENCOUNTER 2021-04-29 07:05 | Day surgery (SDC) | payer MEDICARE, MEDICAID, SELFPAY ==
[2021-04-27 11:24] VITALS: BMI 25.6
[2021-04-29 07:40] VITALS: BP 156/101; PULSE 78; RESP 16; TEMP 36.8; O2SAT 96
--- NOTE | 2021-04-29 07:47 | ANES.PREANE2 ---
Pre-Anesthetic Assessment Pre-Anesthetic Assessment: Height/Weight: Height 1.57 m Weight 63.503 kg Temp Pulse Resp BP Pulse Ox 98.2 F 78 16 156/101 96 04/29/21 07:40 04/29/21 07:40 04/29/21 07:40 04/29/21 07:40 04/29/21 07:40 Preop Diagnosis: Invasive papillary carcinoma of left breast. Proposed Procedure: Operation Date: 04/29/21 08:00 Proposed Procedures p EGD/colon 59039 [id number] K21.9 R10.13 K59.09(Not Applicable) - Raul Rivera MD s Colonoscopy(Not Applicable) - Raul Rivera MD Was Beta Heath taken within 24 hours: N/A Was Clonidine taken within 24 hours: N/A Social: Social History: No alcohol and No tobacco Exam: Pre-Anes Outpt Exam: alert, oriented x 3, clear to auscultation bilaterally and regular rate & rhythm Airway: Submandibular: WNL Cervical ROM: WNL MP: 2 Additional comments: Missing lower arch incisors GI: GI: GERD Neuropsych: Neuropsych: Anxiety, Depression and Seizure Comments: Very hard of hearing Anesthetic Plan: ASA status: 2 Anesthesia: MAC Risk of > 500 ml blood loss (7ml/kg in children): No PFSH Anesthesia PFSH: Medical History Generalized anxiety disorder Impaired speech articulation Major depressive disorder, recurrent episode, in partial remission with anxious distress Family History Denies family history of Diabetes CAD (coronary artery disease) Cancer Hypertension Stroke Social History Smoking and tobacco status: former smoker Alcohol intake: never History of recent travel: No Data Anesthesia Cardiac Studies: No Data to Display
[2021-04-29] MEDS: sodium chloride 0.9% 1,000 ML 30 ML IV (07:52)
--- NOTE | 2021-04-29 08:12 | W.PM.OPSUD ---
Surgery/Procedure H&P Update DATE OF PROCEDURE: April 29, 2021 DATE H&P PERFORMED: 04/06/21 H&P UPDATE INFORMATION: No changes to prior documentation PREOP DIAGNOSIS: GERD, epigastric discomfort, chronic constipation. PLANNED PROCEDURE: Operation Date: 04/29/21 08:00 Proposed Procedures p EGD/colon [id number] K21.9 R10.13 K59.09(Not Applicable) - Raul Rivera MD s Colonoscopy(Not Applicable) - Raul Rivera MD
[2021-04-29 08:41] VITALS: BP 116/62; PULSE 78; RESP 16; TEMP 36.1; O2SAT 94
[2021-04-29 09:00] VITALS: BP 106/62; PULSE 74; RESP 18; O2SAT 97
--- NOTE | 2021-04-29 09:03 | ANE.PACU2 ---
Inpatient post-anesthesia follow up: Airway intact: Yes Vital signs: Temperature 97 F Pulse Rate 74 Respiratory Rate 18 Blood Pressure 106/62 Pulse Oximetry 97 Oxygen Delivery Me thod Room Air Oxygen Flow Rate 3 Fraction of Inspir ed Oxygen Hydration adequate: Yes Mental status: Baseline
--- NOTE | 2021-04-29 12:26 | ANE.PACU2 ---
Inpatient post-anesthesia follow up: Airway intact: Yes Vital signs: Temperature 97 F Pulse Rate 74 Respiratory Rate 18 Blood Pressure 106/62 Pulse Oximetry 97 Oxygen Delivery Me thod Room Air Oxygen Flow Rate 3 Fraction of Inspir ed Oxygen Hydration adequate: Yes Nausea and vomiting: No Pain level: 1 Mental status: Baseline
[2021-04-30 09:11] LABS: H. Pylori / CLO Test Negative
== END 2021-04-29 09:16 | disposition home or self-care (01) ==
PROVIDERS: PCP Family Medicine; Visit Provider Surgery
PROC: 0DJ08ZZ Inspection of Upper Intestinal Tract, Via Natural or Artificial Opening Endoscopic (ICD-10-PCS; CPT 43235; principal; 2021-04-29 08:00)
PROC: 0DJD8ZZ Inspection of Lower Intestinal Tract, Via Natural or Artificial Opening Endoscopic (ICD-10-PCS; CPT 45378; 2021-04-29 08:00)
DX: K59.09 Other constipation (principal); K21.9 Gastro-esophageal reflux disease without esophagitis; R10.13 Epigastric pain; K64.8 Other hemorrhoids; K29.70 Gastritis, unspecified, without bleeding; K31.89 Other diseases of stomach and duodenum; Z87.891 Personal history of nicotine dependence
CPT/HCPCS: 43239; 45378; 87077; 96360; J2704; J7030

== ENCOUNTER → 2021-09-14 08:51 | Outpatient (BNVA) | payer MEDICARE, MEDICAID, SELFPAY | PROVIDERS: PCP Family Medicine; Visit Provider Specialist | DX: G40.001 Localization-related (focal) (partial) idiopathic epilepsy and epileptic syndromes with seizures of localized onset, not intractable, with status epilepticus (principal); G40.401 Other generalized epilepsy and epileptic syndromes, not intractable, with status epilepticus; F33.41 Major depressive disorder, recurrent, in partial remission; F41.9 Anxiety disorder, unspecified; F80.0 Phonological disorder; Z87.891 Personal history of nicotine dependence | CPT/HCPCS: 99213; 99214 ==

== ENCOUNTER 2021-09-16 08:05 | Outpatient (CLI) | payer MEDICARE, MEDICAID, SELFPAY ==
[2021-09-16 08:40] LABS: Basophils % 0.5 %; Eosinophils # 0.1 10^3/uL (0.0-0.8); Hematocrit 40.9 % (37.0-47.0); Hemoglobin 13.7 g/dL (11.5-15.3); Lymphocytes % 32.4 %; Mean Corpuscular HGB Conc 33.5 g/dL (30.0-36.0); Mean Corpuscular Hemoglobin 28.7 pg (28.0-34.0); Mean Corpuscular Volume 85.6 fl (81-99); Mean Platelet Volume 9.4 fL (7.4-10.4); Monocytes # 0.5 10^3/uL (0.2-0.9); Neutrophils # 3.48 10^3/uL (1.8-7.7); Neutrophils % 56.6 %; Nucleated Red Blood Cells % 0 %; Platelet Count 293 10^3/cmm (130-400); Red Blood Count 4.78 10^6/uL (4.1-5.3); Red Cell Distribution Width 12.8 % (12.1-15.1); White Blood Count 6.1 10^3/uL (4.0-10.0)
[2021-09-16 09:13] LABS: Alanine Aminotransferase 13 U/L (0-33); Albumin Level 4.2 g/dL (3.5-5.2); Alkaline Phosphatase 96 IU/L (35-105); Anion Gap 15.8 (5-19); Aspartate Amino Transferase 15 U/L (0-32); Blood Urea Nitrogen 19 mg/dL (6-20); Calcium 10.2 mg/dL (8.5-10.5); Carbon Dioxide 20 mmol/L (22-29); Chloride 103 mmol/L (98-107); Globulin 2.9 g/dL (1.3-4.6); Glomerular Filtration Rate 73.9 mL/min (90-130); Glucose 101 mg/dL (65-115); Osmolality Calculated 282 mOsm/kg (285-295); Potassium 3.8 mmol/L (3.5-5.1); Sodium 135 mmol/L (136-145); Total Bilirubin 0.2 mg/dL (0.15-1.2); Total Protein 7.1 g/dL (6.6-8.7)
--- NOTE | 2021-09-19 09:27 | ONC FU_ITS ---
Dr. Pacheco Patient Follow-Up Note Patient: Kristyn Cason Unit #: [id number]: 1965 Dicatated By: Ian Pacheco M.D.Date of Visit:Sep 16, 2021 Onc Med Follow-up/Prog Note Chief Complaint: Breast cancer. 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 She had presented with an abnormal screening mammogram. That study, from 04/23/2020, was BI-RADS 0, with finding of a partially visualized 14 mm asymmetry in the lateral left breast, noted on the CC projection only. Her diagnostic mammogram and left breast ultrasound on 05/12/2020 was BI-RADS 4, suspicious. The mammogram showed a lobulated soft tissue mass at the 3 o'clock position. By ultrasound, it showed increased vascularity with soft tissue extending beyond the confines of the mass into the duct. It measured 1.3 x 1.6 x 1.2 cm. On 05/29/2020 she underwent ultrasound directed core needle biopsy. Pathology was consistent with low-grade papillary neoplasm. The tumor was ER positive at 98%, MA positive at 75%, and negative for overexpression of HER-2/leslie, 1+ by IHC and amplification ratio by FISH of 0.9 with 1.8 HER-2 copies/cell. The Ki-67 was favorable at 2%. I had seen her initially on 06/16/2020. Given the pathology findings, it appeared that her treatment could be limited to excision alone, and she underwent left breast lumpectomy on 07/16/2020. Pathology on the lumpectomy showed invasive papillary carcinoma measuring 0.8 cm in maximum diameter. The margins were free. In the setting of invasive papillary cancer, she was recommended to have axillary lymph node sampling, and she then underwent sentinel left axillary lymph node biopsy on 09/17/2020. There was no malignancy identified in 1 sentinel axillary lymph node. Pathologic staging was T1b, N0. She referred to Dr. Pike, and she then underwent radiation to the left breast. She completed treatment on 11/13/2020 to a total dose of 4000 cGy administered in 15 fractions. She tolerated the treatment well. She began adjuvant hormonal therapy with anastrozole 1 mg daily in December 2020. She has a history of cerebral palsy with bilateral occipital encephalomalacia, developmental disorder, and focus-based epilepsy. She also has congenital deafness. Her other medical illnesses include hypertension, GERD, chronic migraine, and anxiety/depression. She had smoked in the past. She quit in 1988. She is seen for a follow-up visit. She has been feeling good generally. Her energy is okay. There has been no change in her activity tolerance. Appetite is good. She has no fever, night sweats, or hot flashes. She does not complain of shortness of breath or cough, and she has not been having chest pain. She has no GI or complaints. She has no significant joint or bone pain. She does not complain of headache or dizziness, and she has no focal neurologic symptoms. Medications: Acetaminophen Extra Strength 2 Tablet (of 500 mg) Oral PRN, Bismuth Subsalicylate 30 mL (of 525 mg/30mL) Suspension Oral PRN, Erythromycin 1 (0.5 %) Gel (jelly) Topical daily, lamoTRIgine ER 1 Tablet (of 300 mg) Tablet SR 24 HR Oral daily, Mirtazapine 1 Tablet (of 30 mg) Oral daily, Mucus+Chest Congestion 10 mL (of 200 mg/10mL) Liquid Oral PRN, Kathi-Colace 1 Tablet (of 8.6-50 mg) Oral PRN, Singulair 1 Tablet (of 10 mg) Oral daily, Venlafaxine HCl ER 1 Capsule (of 37.5 mg) Capsule SR 24 HR Oral b.i.d. Allergies: No Known Allergies. Vital Signs: Performed on Sep 16, 2021 14:02 Height - 62.00 in Weight - 146.4 lbs (HIGH) BSA - 1.67 sq.m BMI - 26.78 Temperature - 97.7 F (LOW) Pulse - 92 /min Respiration - 16 /min BP - 153/82 mm(hg) (HIGH) O2 Sat - 95 % (LOW) Pain - 0 Fatigue - 0 Physical Examination: Constitutional - She looks pretty good generally, Eyes - Sclerae nonicteric. Conjunctivae clear, ENMT - No lesions noted in the oral cavity, Hematologic/Lymphatic - No cervical, clavicular, or axillary adenopathy, Respiratory - Lungs are clear with good air movement bilaterally, Cardiovascular - Heart rhythm is regular. There is no murmur, gallop, or rub noted, Abdomen - Soft. Liver and spleen are not enlarged. There is no abdominal mass or ascites noted and there is no inguinal adenopathy, Extremities - No edema, Neurologic - No focal neurologic deficits noted. Lab/Imaging: Test performed on Sep 16, 2021 08:30 Sodium 135 mmol/L Potassium 3.8 mmol/L Chloride 103 mmol/L CO2 20 mmol/L Anion Gap 15.8 BUN 19 mg/dL Creatinine 0.8 mg/dL Cr Clearance (Est) 81.34 mL/min eGFR 73.9 mL/min Glucose 101 mg/dL Osmolality - Calculated 282 mOsm/kg Calcium 10.2 mg/dL Protein, Total 7.1 g/dL Albumin 4.2 g/dL Globulin 2.9 g/dL Bilirubin, Total 0.2 mg/dL ALT (SGPT) 13 U/L AST (SGOT) 15 U/L Alkaline Phosphatase 96 IU/L WBC 6.1 10 3/uL RBC 4.78 10 6/uL HGB 13.7 g/dL HCT 40.9 % MCV 85.6 fl MCH 28.7 pg MCHC 33.5 g/dL RDW 12.8 % Platelet Count 293 10 3/cmm MPV 9.4 fL Neutrophils 3.48 10 3/uL Lymphocytes 2.0 10 3/uL Monocytes 0.5 10 3/uL Eosinophils 0.1 10 3/uL Basophils 0.0 10 3/uL Neutrophil % 56.6 % Lymphocyte % 32.4 % Monocyte % 8.0 % Eosinophil % 2.0 % Basophils % 0.5 % NRBC % 0 % Problem List: 1. Invasive papillary carcinoma of the left breast, stage IA (T1b, N0, M0), ER/MA positive and HER-2/leslie negative. She underwent ultrasound directed core needle biopsy of the left breast on 05/29/2020 followed by left breast lumpectomy on 07/16/2020 and sentinel left axillary lymph node biopsy on 09/17/2020. 2. She underwent radiation to the left breast, completed on 11/13/2020 to a total dose of 4000 cGy administered in 15 fractions. 3. Hypertension. 4. GERD. 5. History of chronic migraine. 6. Cerebral palsy with bilateral occipital encephalomalacia. 7. Developmental disorder. 8. Focus-based epilepsy. 9. Congenital deafness. 10. Anxiety/depression. Problems Addressed with this Encounter and Plan: Patient with invasive papillary carcinoma of the left breast, stage IA (T1b, N0, M0), ER/MA positive and HER-2/leslie negative. She underwent left breast lumpectomy on 07/16/2020. Pathology on the lumpectomy showed invasive papillary carcinoma measuring 0.8 cm in maximum diameter. The margins were free. In the setting of invasive papillary cancer, she was recommended to have axillary lymph node sampling, and she then underwent sentinel left axillary lymph node biopsy on 09/17/2020. There was no malignancy identified in 1 sentinel axillary lymph node. Pathologic staging was T1b, N0. She referred to Dr. Pike, and she then underwent radiation to the left breast. She completed treatment on 11/13/2020 to a total dose of 4000 cGy administered in 15 fractions. She tolerated the treatment well. She began adjuvant hormonal therapy with anastrozole in December 2020. She initially was having some hot flashes and sweating with it, but that seems to have resolved now. She has otherwise been tolerating it well. Thus far there has been no evidence of recurrence of the breast cancer. She continues adjuvant hormonal therapy with anastrozole 1 mg daily. She will be scheduled for a follow-up visit in 6 months. Signed By: Ian Pacheco M.D. <<Signature on File>>
== END 2021-09-16 08:06 | disposition home or self-care (01) ==
PROVIDERS: PCP Family Medicine; Visit Provider Internal Medicine Medical Oncology
DX: C50.812 Malignant neoplasm of overlapping sites of left female breast (principal); I10 Essential (primary) hypertension; K21.9 Gastro-esophageal reflux disease without esophagitis; G80.9 Cerebral palsy, unspecified; G93.89 Other specified disorders of brain; G40.909 Epilepsy, unspecified, not intractable, without status epilepticus; H90.5 Unspecified sensorineural hearing loss; F41.9 Anxiety disorder, unspecified; F32.A Depression, unspecified; F89 Unspecified disorder of psychological development
CPT/HCPCS: 36415; 80053; 85025; 99214

== ENCOUNTER 2022-04-22 09:13 | Outpatient (CLI) | payer MEDICARE, MEDICAID, SELFPAY ==
--- NOTE | 2022-04-22 09:22 | MM_ITS ---
WS: [id number] Bilateral diagnostic 3D tomosynthesis digital mammogram, 04/22/2022 Clinical Data: HX OF BREAST CA Comparison: 04/26/2021, 05/12/2020, 04/23/2020, 03/04/2019 02/21/2018, 02/16/2017, 02/16/2016, 02/13/2015, 02/04/2014, 02/01/2013, 01/04/2012, 12/21/2010, 12/29/2009, 07/28/2009, 05/18/2007, 06/16/2006, 06/05/2006. Findings: The breasts are heterogeneously slowly dense. There is no evidence of recurrent carcinoma. No spicula lawrence masses nor clustered calcifications are seen. The left breast shows thickened skin. MM/[place] [id number] Impression: 1. Negative bilateral mammograms unchanged. 2. Recommend annual mammograms. BIRADS: 2-Benign FOLLOW UP: 1 Year Follow-up The CAD construction checker was used.
== END 2022-04-22 09:14 | disposition home or self-care (01) ==
PROVIDERS: PCP Family Medicine; Visit Provider Family Medicine
DX: Z85.3 Personal history of malignant neoplasm of breast (principal)
CPT/HCPCS: 77062; 77066

== ENCOUNTER 2022-05-18 11:11 | Oncology outpatient (recurring) (ONCR) | payer MEDICARE, MEDICAID, SELFPAY ==
[2022-05-18 11:53] LABS: Basophils % 0.6 %; Eosinophils # 0.1 10^3/uL (0.0-0.8); Eosinophils % 1.7 %; Hematocrit 41.9 % (37.0-47.0); Hemoglobin 13.6 g/dL (11.5-15.3); Lymphocytes % 27.1 %; Mean Corpuscular HGB Conc 32.5 g/dL (30.0-36.0); Mean Corpuscular Volume 86.2 fl (81-99); Mean Platelet Volume 9.6 fL (7.4-10.4); Monocytes # 0.5 10^3/uL (0.2-0.9); Monocytes % 7.2 %; Neutrophils # 4.54 10^3/uL (1.8-7.7); Neutrophils % 63.1 %; Nucleated Red Blood Cells % 0 %; Platelet Count 286 10^3/cmm (130-400); Red Blood Count 4.86 10^6/uL (4.1-5.3); White Blood Count 7.2 10^3/uL (4.0-10.0)
[2022-05-18 12:13] LABS: Alanine Aminotransferase 14 U/L (0-33); Albumin Level 4.2 g/dL (3.5-5.2); Alkaline Phosphatase 90 U/L (35-105); Anion Gap 11.9 (5-19); Aspartate Amino Transferase 13 U/L (0-32); Blood Urea Nitrogen 15 mg/dL (6-20); Carbon Dioxide 29 mmol/L (22-29); Chloride 101 mmol/L (98-107); Globulin 3.1 g/dL (1.3-4.6); Glomerular Filtration Rate 73.9 mL/min (90-130); Glucose 98 mg/dL (65-115); Osmolality Calculated 287 mOsm/kg (285-295); Potassium 3.9 mmol/L (3.5-5.1); Sodium 138 mmol/L (136-145); Total Bilirubin 0.3 mg/dL (0.15-1.2); Total Protein 7.3 g/dL (6.6-8.7)
== END 2022-06-06 23:59 | disposition home or self-care (01) ==
PROVIDERS: PCP Family Medicine; Visit Provider Internal Medicine Medical Oncology
DX: C50.812 Malignant neoplasm of overlapping sites of left female breast (principal); Z17.0 Estrogen receptor positive status [ER+]; R23.2 Flushing; Z79.818 Long term (current) use of other agents affecting estrogen receptors and estrogen levels; Z92.3 Personal history of irradiation
CPT/HCPCS: 36415; 80053; 85025; 99214

== ENCOUNTER → 2022-10-25 09:57 | Outpatient (BNVA) | payer MEDICARE, MEDICAID, SELFPAY | PROVIDERS: PCP Family Medicine; Visit Provider Family Medicine | DX: E55.9 Vitamin D deficiency, unspecified (principal); E78.2 Mixed hyperlipidemia; F32.9 Major depressive disorder, single episode, unspecified; F33.41 Major depressive disorder, recurrent, in partial remission; F41.1 Generalized anxiety disorder; F41.8 Other specified anxiety disorders; F41.9 Anxiety disorder, unspecified; R73.9 Hyperglycemia, unspecified; Z76.89 Persons encountering health services in other specified circumstances | CPT/HCPCS: 80053; 80061; 81000; 82043; 82652; 83036; 84443; 85025 ==

== ENCOUNTER → 2022-10-27 13:38 | Outpatient (BNVA) | payer MEDICARE, MEDICAID, SELFPAY | PROVIDERS: PCP Family Medicine; Visit Provider Specialist | DX: G40.309 Generalized idiopathic epilepsy and epileptic syndromes, not intractable, without status epilepticus (principal); F41.9 Anxiety disorder, unspecified; F32.A Depression, unspecified; G43.909 Migraine, unspecified, not intractable, without status migrainosus | CPT/HCPCS: 99213 ==

== ENCOUNTER 2022-11-21 12:31 | Oncology outpatient (recurring) (ONCR) | payer MEDICARE, MEDICAID, SELFPAY | END 2022-12-04 23:59 | disposition home or self-care (01) | LOC: ONCMED 12:31 | PROVIDERS: PCP Family Medicine; Visit Provider Internal Medicine Medical Oncology | DX: C50.812 Malignant neoplasm of overlapping sites of left female breast (principal); Z17.0 Estrogen receptor positive status [ER+]; Z79.818 Long term (current) use of other agents affecting estrogen receptors and estrogen levels; Z87.891 Personal history of nicotine dependence; R23.2 Flushing; Z78.0 Asymptomatic menopausal state; Z92.3 Personal history of irradiation | CPT/HCPCS: 99214 ==

== ENCOUNTER 2022-11-23 12:04 | Outpatient (CLI) | payer MEDICARE, MEDICAID, SELFPAY ==
--- NOTE | 2022-11-23 13:00 | XR_ITS ---
WS: [id number] DEXA (DUAL ENERGY X-RAY ABSORPTIOMETRY) Bone mineral density was performed using a [employer] machine. HISTORY: menopause and AI therapy COMPARISON: None available. Lumbar spine BMD (L1-L4): 1.285 g/cm2 T score: 0.9 Z score: 2.1 Total hip BMD: Left: 0.912 g/cm2. T score: -0.8 Z score: 0.2 Right: 0.983 g/cm2. T score: -0.2 Z score: 0.8 10 year probability of a major osteoporotic fracture is 6.6%. XR/XR DEXA axial skeleton* [id number] IMPRESSION: NORMAL BONE MINERAL DENSITY based upon the WHO classification for females.
== END 2022-11-23 12:05 | disposition home or self-care (01) ==
LOC: RAD 12:12
PROVIDERS: PCP Family Medicine; Visit Provider Nurse Practitioner
DX: C50.812 Malignant neoplasm of overlapping sites of left female breast (principal); Z78.0 Asymptomatic menopausal state
CPT/HCPCS: 77080

== ENCOUNTER 2023-02-24 08:49 | Outpatient (CLI) | payer MEDICARE, MEDICAID, SELFPAY ==
--- NOTE | 2023-02-24 09:05 | CT_ITS ---
WS: [email or web address] CT HEAD NONCONTRAST AND CONTRAST TECHNIQUE: Noncontrast and contrast-enhanced CT of the head. CLINICAL INFORMATION: ?MASS VS STROKE COMPARISON: MRI 6 14,012 DLP: 2288.[address] scans at [facility] use at least one of these dose optimization techniques: automated e xposure control; mA and/or kV adjustment per patient size (includes targeted exams where dose is matc hed to clinical indication); or iterative reconstruction. FINDINGS:Some images degraded due to beam hardening artifact from RIGHT cochlear implant. No evidence of intracranial hemorrhage or mass effect. Ventricular system and basal cisterns are frost nt. Mild small vessel changes. Mild supratentorial parenchymal volume loss. Moderate parenchymal volu me loss involving the posterior fossa. Chronic infarcts involving the LEFT frontoparietal junction ex tending into the bilateral occipital lobes CAGE CASHIER territories in a symmetric fashion with associated enc ephalomalacia. This is similar to 2012. No extra-axial fluid collections. Prior postoperative changes RIGHT canal wall up mastoidectomy with cochlear implant. Mild mucosal thickening RIGHT mastoid tip. LEFT mastoid air cells well aerated. Par anasal sinuses are well aerated. Posterior nasopharynx normal. Postcontrast images demonstrate no abnormal intracranial enhancement. No focal enhancing lesions. CT/CT head wo/w con [id number] IMPRESSION: Some images degraded due to beam hardening artifact from RIGHT coch lear implant. 1. No evidence of intracranial hemorrhage or mass effect. 2. No suspicious intracranial enhancing lesions. 3. 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 This is similar in appearance to 2012. 4. Mild small vessel changes with moderate asymmetric parenchymal volume loss involving the cerebellum and vermis similar to the prior studies. 5. Prior postoperative changes RIGHT canal wall up mastoidectomy with cochlear implant and mucosal thickening RIGHT mastoid tip.
--- NOTE | 2023-02-24 09:05 | CT_ITS ---
WS: [email or web address] CT SINUSES TECHNIQUE: Noncontrast CT of the paranasal sinuses with coronal and sagittal reformatted images. CLINICAL INFORMATION: ?MASS VS STROKE COMPARISON: None. DLP: 2288.[address] scans at [facility] use at least one of these dose optimization techniques: automated e xposure control; mA and/or kV adjustment per patient size (includes targeted exams where dose is matc hed to clinical indication); or iterative reconstruction. FINDINGS: Mild RIGHT to LEFT nasal septal deviation measuring 3 mm. Small bilateral tony bullosa. Mild narrow ing of the ostiomeatal units bilaterally. Mild mucosal thickening ethmoid air cells. Mild mucosal thi ckening RIGHT maxillary sinus. LEFT maxillary sinus is well aerated. Trace mucosal thickening ethmoid air cells. Frontal sinuses are well aerated. Frontal ethmoidal recesses are patent. Sphenoid sinuses are patent. RIGHT canal wall up partial mastoidectomy. Mucosal thickening at the mastoid tip. RIGHT cochlear impl ant. LEFT mastoid air cells well aerated. Normal posterior nasopharynx and parapharyngeal fat. CT/CT sinus wo con* [id number] IMPRESSION: 1. Mild RIGHT to LEFT nasal septal deviation measuring 3 mm. 2. Small bilateral tony bullosa. 3. Mild mucosal thickening RIGHT maxillary sinus. Paranasal sinuses are otherw ise well aerated. 4. Prior postoperative RIGHT canal wall up partial mastoidectomy with cochlear implant.
[2023-02-24] MEDS: iohexol 350 mg/mL 500 mL Btl (per mL) IV (09:31)
== END 2023-02-24 08:50 | disposition home or self-care (01) ==
PROVIDERS: PCP Family Medicine; Visit Provider Student in an Organized Health Care Education/Training Program
DX: H53.461 Homonymous bilateral field defects, right side (principal)
CPT/HCPCS: 70470; 70486; Q9967

== ENCOUNTER 2023-05-11 09:29 | Outpatient (CLI) | payer MEDICARE, MEDICAID, SELFPAY ==
--- NOTE | 2023-05-11 09:37 | MM_ITS ---
WS: [email or web address] BILATERAL 3D TOMOSYNTHESIS DIGITAL DIAGNOSTIC MAMMOGRAPHY WITH CAD CLINICAL INFORMATION: C50.812 - Malignant neoplasm of overlapping sites of left... HISTORY: History of LEFT breast papillary carcinoma COMPARISON: 04/22/2022 TECHNIQUE: Bilateral CC, MLO, and ML views. FINDINGS: The breasts are composed of heterogeneous fibroglandular density, which can limit the detection of sm all underlying mass lesions. Prior postoperative lumpectomy LEFT breast. Incidental punctate calcific ations. No suspicious focal mass, asymmetry, calcifications, or architectural distortion. No evidence of dominique gnancy. IMPRESSION: MM/[place] [id number] BI-RADS: 2-Benign FOLLOW UP: 1 Year Follow-up Recommend return to annual diagnostic mammography.
== END 2023-05-11 09:30 | disposition home or self-care (01) ==
PROVIDERS: PCP Family Medicine; Visit Provider Family Medicine
DX: C50.812 Malignant neoplasm of overlapping sites of left female breast (principal)
CPT/HCPCS: 77062; G0279

== ENCOUNTER 2023-06-12 12:39 | Oncology outpatient (recurring) (ONCR) | payer MEDICARE, MEDICAID, SELFPAY ==
[2023-06-12 12:56] VITALS: BP 122/66; PULSE 87; RESP 16; TEMP 36.8; O2SAT 97
[2023-06-12 13:27] LABS: Basophils % 0.5 %; Eosinophils # 0.2 10^3/uL (0.0-0.8); Eosinophils % 2.4 %; Hematocrit 41.6 % (36-47); Lymphocytes # 2.4 10^3/uL (0.8-4.8); Lymphocytes % 31.9 %; Mean Corpuscular HGB Conc 33.2 g/dL (30-55); Mean Corpuscular Hemoglobin 28.4 pg (27-33); Mean Corpuscular Volume 85.6 fl (85-98); Mean Platelet Volume 9.8 fL (7.4-10.4); Monocytes # 0.5 10^3/uL (0.2-0.9); Monocytes % 7.1 %; Neutrophils # 4.39 10^3/uL (1.8-7.7); Neutrophils % 57.7 %; Nucleated Red Blood Cells % 0 %; Platelet Count 321 10^3/cmm (157-399); Red Blood Count 4.86 10^6/uL (3.85-5.65); Red Cell Distribution Width 12.7 % (12.1-15.1); White Blood Count 7.61 10^3/uL (3.29-11.43)
[2023-06-12 13:50] LABS: Alanine Aminotransferase 13 U/L (0-33); Albumin Level 4.6 g/dL (3.5-5.2); Alkaline Phosphatase 84 U/L (35-105); Anion Gap 14.6 (5-19); Aspartate Amino Transferase 14 U/L (0-32); Blood Urea Nitrogen 14 mg/dL (6-20); Calcium 9.6 mg/dL (8.5-10.5); Carbon Dioxide 25 mmol/L (22-29); Chloride 105 mmol/L (98-107); Glomerular Filtration Rate 56.9 mL/min (90-130); Glucose 99 mg/dL (65-115); Osmolality Calculated 293 mOsm/kg (285-295); Potassium 3.6 mmol/L (3.5-5.1); Sodium 141 mmol/L (136-145); Total Bilirubin 0.5 mg/dL (0.15-1.2); Total Protein 7.6 g/dL (6.6-8.7)
== END 2023-07-06 23:59 | disposition home or self-care (01) ==
PROVIDERS: PCP Family Medicine; Visit Provider Internal Medicine Medical Oncology
DX: C50.812 Malignant neoplasm of overlapping sites of left female breast (principal); Z17.0 Estrogen receptor positive status [ER+]; R23.2 Flushing; Z79.818 Long term (current) use of other agents affecting estrogen receptors and estrogen levels; Z92.3 Personal history of irradiation
CPT/HCPCS: 36415; 80053; 85025; 99214

== ENCOUNTER → 2023-07-20 09:40 | Outpatient (BNVA) | payer MEDICARE, MEDICAID, SELFPAY | PROVIDERS: PCP Family Medicine; Visit Provider Nurse Practitioner | DX: R05.9 Cough, unspecified (principal); U07.1 COVID-19 | CPT/HCPCS: 87426 ==

== ENCOUNTER → 2023-10-31 09:13 | Outpatient (BNVA) | payer MEDICARE, MEDICAID, SELFPAY | PROVIDERS: PCP Family Medicine; Visit Provider Specialist | DX: R29.90 Unspecified symptoms and signs involving the nervous system (principal); F80.0 Phonological disorder; G40.309 Generalized idiopathic epilepsy and epileptic syndromes, not intractable, without status epilepticus; F41.9 Anxiety disorder, unspecified; F32.9 Major depressive disorder, single episode, unspecified | CPT/HCPCS: 99213 ==

== ENCOUNTER 2023-12-18 11:40 | Oncology outpatient (recurring) (ONCR) | payer MEDICARE, MEDICAID, SELFPAY ==
[2023-12-18 12:02] LABS: Basophils % 0.5 %; Eosinophils # 0.1 10^3/uL (0.0-0.8); Hematocrit 41.8 % (36-47); Lymphocytes # 2.2 10^3/uL (0.8-4.8); Lymphocytes % 32.8 %; Mean Corpuscular HGB Conc 33.3 g/dL (30-55); Mean Corpuscular Hemoglobin 28.3 pg (27-33); Mean Corpuscular Volume 85.1 fl (85-98); Mean Platelet Volume 9.5 fL (7.4-10.4); Monocytes # 0.5 10^3/uL (0.2-0.9); Monocytes % 7.3 %; Neutrophils # 3.79 10^3/uL (1.8-7.7); Neutrophils % 57.1 %; Nucleated Red Blood Cells % 0 %; Platelet Count 287 10^3/cmm (157-399); Red Blood Count 4.91 10^6/uL (3.85-5.65); White Blood Count 6.62 10^3/uL (3.29-11.43)
[2023-12-18 12:25] LABS: Alanine Aminotransferase 14 U/L (0-33); Albumin Level 4.4 g/dL (3.5-5.2); Alkaline Phosphatase 81 U/L (35-105); Anion Gap 14.1 (5-19); Aspartate Amino Transferase 17 U/L (0-32); Blood Urea Nitrogen 15 mg/dL (6-20); Calcium 9.9 mg/dL (8.5-10.5); Carbon Dioxide 26 mmol/L (22-29); Chloride 102 mmol/L (98-107); Globulin 3.2 g/dL (1.3-4.6); Glomerular Filtration Rate 85.6 mL/min (90-130); Glucose 97 mg/dL (65-115); Osmolality Calculated 287 mOsm/kg (285-295); Potassium 4.1 mmol/L (3.5-5.1); Sodium 138 mmol/L (136-145); Total Bilirubin 0.5 mg/dL (0.15-1.2); Total Protein 7.6 g/dL (6.6-8.7)
== END 2024-01-05 23:59 | disposition home or self-care (01) ==
PROVIDERS: Internal Medicine; PCP Family Medicine; Visit Provider Internal Medicine Medical Oncology
DX: C50.812 Malignant neoplasm of overlapping sites of left female breast (principal); Z17.0 Estrogen receptor positive status [ER+]; R23.2 Flushing; Z79.818 Long term (current) use of other agents affecting estrogen receptors and estrogen levels; Z92.3 Personal history of irradiation
CPT/HCPCS: 36415; 80053; 85025; 99213

== ENCOUNTER 2024-05-15 09:02 | Oncology outpatient (recurring) (ONCR) | payer MEDICARE, MEDICAID, SELFPAY ==
--- NOTE | 2024-05-15 09:30 | MM_ITS ---
WS: [email or web address] DIAGNOSTIC BILATERAL DIGITAL BREAST TOMOSYNTHESIS MAMMOGRAPHY WITH CAD HISTORY: surveillance COMPARISON: 04/22/2022, 04/26/2021, TECHNIQUE: Bilateral craniocaudad, mediolateral oblique, and mediolateral views are submitted with to mosynthesis and SM. Computer aided detection utilized. Breast composition: The breasts are heterogeneously dense, which may obscure small masses. Postsurgical changes LEFT breast are stable. There is an area of distortion at the site of the lumpec jina. RIGHT breast is negative. MM/MM diag BI tomosynthesis [id number] IMPRESSION: BI-RADS: 2 - Benign FOLLOW UP: 1 Year Follow-up
== END 2024-06-06 23:59 | disposition home or self-care (01) ==
LOC: RAD 09:02 → ONCMED 12:24
PROVIDERS: PCP Family Medicine; Visit Provider Nurse Practitioner Family
DX: C50.812 Malignant neoplasm of overlapping sites of left female breast (principal); R92.333 Mammographic heterogeneous density, bilateral breasts; N65.0 Deformity of reconstructed breast
CPT/HCPCS: 77062; G0279

== ENCOUNTER → 2024-06-12 15:14 | Outpatient (BNVA) | payer MEDICARE, MEDICAID, SELFPAY | PROVIDERS: PCP Family Medicine; Visit Provider Family Medicine | DX: R32 Unspecified urinary incontinence (principal); R30.0 Dysuria | CPT/HCPCS: 81000; 87086 ==

== ENCOUNTER 2024-06-20 10:48 | Oncology outpatient (recurring) (ONCR) | payer MEDICARE, MEDICAID, SELFPAY ==
[2024-06-20 11:40] LABS: Basophils % 0.3 %; Eosinophils # 0.1 10^3/uL (0.0-0.8); Hematocrit 41.1 % (36-47); Lymphocytes # 2.3 10^3/uL (0.8-4.8); Lymphocytes % 33.1 %; Mean Corpuscular HGB Conc 32.8 g/dL (30-55); Mean Corpuscular Hemoglobin 27.8 pg (27-33); Mean Corpuscular Volume 84.7 fl (85-98); Mean Platelet Volume 9.7 fL (7.4-10.4); Monocytes # 0.5 10^3/uL (0.2-0.9); Monocytes % 6.5 %; Neutrophils # 4.07 10^3/uL (1.8-7.7); Neutrophils % 57.8 %; Nucleated Red Blood Cells % 0 %; Platelet Count 294 10^3/cmm (157-399); Red Blood Count 4.85 10^6/uL (3.85-5.65); Red Cell Distribution Width 12.5 % (12.1-15.1); White Blood Count 7.04 10^3/uL (3.29-11.43)
[2024-06-20 12:00] LABS: Alanine Aminotransferase 12 U/L (0-33); Albumin Level 4.3 g/dL (3.5-5.2); Alkaline Phosphatase 77 U/L (35-105); Anion Gap 14.3 (5-19); Aspartate Amino Transferase 15 U/L (0-32); Blood Urea Nitrogen 13 mg/dL (6-20); Calcium 9.1 mg/dL (8.5-10.5); Carbon Dioxide 27 mmol/L (22-29); Chloride 103 mmol/L (98-107); Creatinine Clr Calc Pharmacy 52.3409; Globulin 2.5 g/dL (1.3-4.6); Glomerular Filtration Rate 56.7 mL/min (90-130); Glucose 97 mg/dL (65-115); Osmolality Calculated 290 mOsm/kg (285-295); Potassium 4.3 mmol/L (3.5-5.1); Sodium 140 mmol/L (136-145); Total Bilirubin 0.3 mg/dL (0.15-1.2); Total Protein 6.8 g/dL (6.6-8.7)
== END 2024-07-06 23:59 | disposition home or self-care (01) ==
PROVIDERS: PCP Family Medicine; Visit Provider Nurse Practitioner Family
DX: Z85.3 Personal history of malignant neoplasm of breast; Z08 Encounter for follow-up examination after completed treatment for malignant neoplasm; C50.812 Malignant neoplasm of overlapping sites of left female breast; Z79.811 Long term (current) use of aromatase inhibitors; Z92.3 Personal history of irradiation
CPT/HCPCS: 36415; 80053; 85025; 99214

== ENCOUNTER → 2024-08-21 09:00 | Outpatient (BNVA) | payer MEDICARE, MEDICAID, SELFPAY | PROVIDERS: PCP Family Medicine; Visit Provider Family Medicine | DX: E55.9 Vitamin D deficiency, unspecified (principal); R79.89 Other specified abnormal findings of blood chemistry; E78.2 Mixed hyperlipidemia; G40.309 Generalized idiopathic epilepsy and epileptic syndromes, not intractable, without status epilepticus; F32.9 Major depressive disorder, single episode, unspecified; F41.9 Anxiety disorder, unspecified | CPT/HCPCS: 80053; 80061; 82306; 82607; 82728; 82746; 83036; 83540; 83735; 84443 ==

== ENCOUNTER → 2024-10-24 09:21 | Outpatient (BNVA) | payer MEDICARE, MEDICAID, SELFPAY | PROVIDERS: PCP Family Medicine; Visit Provider Specialist | DX: R29.90 Unspecified symptoms and signs involving the nervous system (principal); F80.0 Phonological disorder; G40.309 Generalized idiopathic epilepsy and epileptic syndromes, not intractable, without status epilepticus; F41.9 Anxiety disorder, unspecified; F32.9 Major depressive disorder, single episode, unspecified; L25.9 Unspecified contact dermatitis, unspecified cause | CPT/HCPCS: 99213 ==

== ENCOUNTER 2024-12-23 14:30 | Oncology outpatient (recurring) (ONCR) | payer MEDICARE, MEDICAID, SELFPAY ==
[2024-12-18 12:10] LABS: Basophils % 0.1 %; Eosinophils # 0.1 10^3/uL (0.0-0.8); Eosinophils % 1.5 %; Hematocrit 42.5 % (36-47); Lymphocytes # 2.3 10^3/uL (0.8-4.8); Lymphocytes % 32.8 %; Mean Corpuscular HGB Conc 32.7 g/dL (30-55); Mean Corpuscular Volume 85.7 fl (85-98); Mean Platelet Volume 9.9 fL (7.4-10.4); Monocytes # 0.5 10^3/uL (0.2-0.9); Monocytes % 7.3 %; Neutrophils # 4.11 10^3/uL (1.8-7.7); Neutrophils % 57.9 %; Nucleated Red Blood Cells % 0 %; Platelet Count 294 10^3/cmm (157-399); Red Blood Count 4.96 10^6/uL (3.85-5.65); Red Cell Distribution Width 12.3 % (12.1-15.1); White Blood Count 7.11 10^3/uL (3.29-11.43)
[2024-12-18 12:32] LABS: Alanine Aminotransferase 13 U/L (0-33); Albumin Level 4.4 g/dL (3.5-5.2); Alkaline Phosphatase 81 U/L (35-105); Anion Gap 16.3 (5-19); Aspartate Amino Transferase 12 U/L (0-32); Blood Urea Nitrogen 11 mg/dL (8-23); Calcium 10.1 mg/dL (8.5-10.5); Carbon Dioxide 24 mmol/L (22-29); Chloride 104 mmol/L (98-107); Creatinine Clr Calc Pharmacy 72.6256; Glomerular Filtration Rate 85.4 mL/min (90-130); Glucose 90 mg/dL (65-115); Osmolality Calculated 289 mOsm/kg (285-295); Potassium 4.3 mmol/L (3.5-5.1); Sodium 140 mmol/L (136-145); Total Bilirubin 0.5 mg/dL (0.15-1.2); Total Protein 7.4 g/dL (6.6-8.7)
--- NOTE | 2024-12-23 14:30 | XR_ITS ---
WS: [email or web address] DEXA (DUAL ENERGY X-RAY ABSORPTIOMETRY) Bone mineral density was performed using a [employer] machine. HISTORY: menopause COMPARISON: 11/23/2022 Lumbar spine BMD (L1-L4): 1.161 g/cm2 T score: -0.2 Z score: 1.2 Total hip BMD: Left: 0.913 g/cm2. T score: -0.8 Z score: 0.3 Right: 0.969 g/cm2. T score: -0.3 Z score: 0.8 10 year probability of a major osteoporotic fracture is 7.1%. Compared to the prior study from 11/23/2022. Lumbar spine bone mineral density has decreased by 9.6%. Bilateral hips bone mineral density has decreased by 0.7%. XR/XR DEXA axial skeleton* [id number] IMPRESSION: NORMAL BONE MINERAL DENSITY based upon the WHO classification for females. Significant decrease in bone mineral density within the lumbar spine since the prior study. No change within the hips.
== END 2025-01-04 23:59 | disposition home or self-care (01) ==
LOC: RAD 12-24 → ONCMED 12-24 09:26
PROVIDERS: Nurse Practitioner Family; PCP Family Medicine; Visit Provider Internal Medicine Medical Oncology
DX: Z53.9 Procedure and treatment not carried out, unspecified reason; Z78.0 Asymptomatic menopausal state; M85.9 Disorder of bone density and structure, unspecified
CPT/HCPCS: 36415; 77080; 80053; 85025; 99214

== ENCOUNTER 2025-01-02 16:33 | Emergency (ER) | payer MEDICARE, MEDICAID, SELFPAY ==
--- NOTE | 2025-01-02 16:36 | XRR_ITS ---
PROCEDURE INFORMATION: Exam: XR Left Knee Exam date and time: 01/02/2025 5:30 PM Age: 59 years old Clinical indication: Injury or trauma; Fall; Blunt trauma; Knee; Left TECHNIQUE: Imaging protocol: Radiologic exam of the left knee. Views: 3 views. COMPARISON: CR XR knee LT 3V* [id number] 03/29/2018 9:08 PM FINDINGS: Bones/joints: No fractures. No bony destructive lesions. No dislocations or subluxations. Marginal osteophytes medial aspect of the knee. Soft tissues: Normal. XR/XR knee LT 3V* [id number] IMPRESSION: 1. No acute fractures or malalignment. 2. Osteoarthritic changes of the left knee with marginal osteophytes medially but without significant joint space narrowing.
--- NOTE | 2025-01-02 16:36 | XRR_ITS ---
PROCEDURE INFORMATION: Exam: XR Right Knee Exam date and time: 01/02/2025 5:40 PM Age: 59 years old Clinical indication: Injury or trauma; Fall; Blunt trauma; Knee; Right TECHNIQUE: Imaging protocol: Radiologic exam of the right knee. Views: 3 views. COMPARISON: CR XR knee RT 3V* [id number] 12/14/2018 10:46 AM FINDINGS: Bones/joints: No fractures. No bony destructive lesions. Marginal osteophytes. No significant joint space narrowing. Decreased osseous mineralization subjectively. Soft tissues: Normal. XR/XR knee RT 3V* [id number] IMPRESSION: 1. No acute fractures or malalignment. 2. Decreased osseous mineralization subjectively. 3. Osteoarthritis of the right knee with marginal osteophytes but without significant joint space narrowing.
[2025-01-02 16:51] VITALS: BP 124/64; PULSE 76; RESP 17; TEMP 36.7; O2SAT 98
--- NOTE | 2025-01-02 18:17 | CTR_ITS ---
PROCEDURE INFORMATION: Exam: CT Head Without Contrast Exam date and time: 01/02/2025 7:10 PM Age: 59 years old Clinical indication: Injury or trauma; Fall; Blunt trauma (contusions or hematomas); Without loss of consciousness; Prior surgery; Surgery date: 6+ months; Surgery type: Hearing TECHNIQUE: Imaging protocol: Computed tomography of the head without contrast. Radiation optimization: All CT scans at this facility use at least one of these dose optimization techniques: automated exposure control; mA and/or kV adjustment per patient size (includes targeted exams where dose is matched to clinical indication); or iterative reconstruction. COMPARISON: CT head wo/w con [id number] 02/24/2023 9:14 AM RADIATION DOSE METRICS: Total DLP (mGy-cm): 917.88 FINDINGS: Brain: No hemorrhage. Unremarkable white matter. No mass effect. Cerebral ventricles: No ventriculomegaly. Paranasal sinuses: Visualized sinuses are unremarkable. No fluid levels. Mastoid air cells: Redemonstration of the postsurgical changes of right-sided mastoidectomy and cochlear implant. Bones: Unremarkable. No acute fracture. Soft tissu Manuela the es: Unremarkable. CT/CT head wo con* [id number] IMPRESSION: 1. No acute intracranial abnormality. 2. Redemonstration of the postsurgical changes of right-sided mastoidectomy and cochlear implant.
--- NOTE | 2025-01-02 18:20 | ED_ITS ---
HPI - Head Injury General: Chief complaint: Head Injury Stated complaint: fell on knees and hit head Time Seen by Provider: 01/02/25 17:06 Source: patient and family Mode of arrival: ambulatory Limitations: no limitations History of Present Illness: 59yo female presents with caregiver for evaluation following a fall while getting out of the vehicle that occurred at approximately 1300 today. Caregiver reports that the patient fell to her knees, then hit her head on the ground. She does have abrasion to the left forehead as well as the left knee. Reports Tylenol was provided for headache at 1400. Caregiver is requesting CT scan of the head due to the injury as well as bruising around the eye. They deny use of blood thinners, loss of consciousness, vomiting, neck pain, back pain. Associated symptoms: Deny neck pain or vomiting Related Data Home Medications ?Medication ?Instructions ?Recorded ?Confirmed naproxen sodium 220 mg tablet 220 mg PO Q8H PRN Pain 0 09/16/19 12/18/24 acetaminophen 500 mg tablet 1,000 mg PO Q6H PRN 12/18/24 (Tylenol Extra Strength) bisacodyl 10 mg rectal suppository 10 mg AR DAILY PRN 05/18/22 12/18/24 carboxymethylcellulose sodium 0.5 1 drp ophthalmic (ey e) BID PRN 05/18/22 12/18/24 % eye drops in a dropperette (Refresh Plus) dorzolamide 22.3 mg-timolol 6.8 ophthalmic (eye) 10/2412/18/24 mg/mL eye drops Previous Rx's ?Medication ?Instructions ?Recorded hydroxyzine pamoate 25 mg capsule 25 mg PO BID PRN itc garrick #10 caps 10/31/23 (Vistaril) anastrozole 1 mg tablet See Rx Instructions .Route 0 02/16/24 .COMPLEX #90 tabs bismuth subsalicylate 262 mg/15 mL See Rx Instructions .Route 02/26/24 oral suspension (Pepto-Bismol) .COMPLEX #236 mL diaper,brief,adult,disposable #64 ea 06/12/24 (Fitted Briefs Large) polyethylene glycol 3350 17 See Rx Instructions .Route 08/08/24 gram/dose oral powder .COMPLEX #5,610 grams mirtazapine 30 mg tablet See Rx Instructions .Route 0 08/12/24 .COMPLEX #30 tabs calcium 600 mg (as 1 tab PO DAILY #90 tabs 08/07 12/29 carbonate)-vitamin D3 20 mcg (800 unit) tablet lisinopril 10 mg tablet See Rx Instructions .Route 0 09/30/24 .COMPLEX #30 tabs pantoprazole 40 mg tablet,delayed See Rx Instructions .Route 09/30/24 release .COMPLEX #30 tabs lamotrigine 200 mg tablet,extended 200 mg PO DAILY 90 days #90 tabs 10/24/24 release 24 hr montelukast 10 mg tablet See Rx Instructions .Route 0 11/12/24 .COMPLEX #30 tabs Allergies Allergy/AdvReac Type Severity Reaction Status Date / Time No Known Allergies Allergy Verified 12/18/24 11:52 Review of Systems Const: Denies: fever(s) or chills Card: Denies: chest pain Resp: Denies: dyspnea GI: Denies: vomiting Musc: Reports: extremity pain (bilateral knees); Denies: neck pain or back pain Skin/Breast: Reports: other (abrasions forehead, left knee) Neuro: Denies: headache(s) PFSH ED PFSH: Medical History Chronic migraine Hypertension Epilepsy Focus-based epilepsy Developmental disorder Congenital deafness Cerebral palsy Cerebral palsy with bilateral occipital encephalomalacia Breast cancer Generalized anxiety disorder Impaired speech articulation Major depressive disorder, recurrent episode, in partial remission with anxious distress Surgical History History of lymph node biopsy (09/17/20) Left axillary sentinel lymph node biopsy History of lumpectomy of left breast (07/16/20) History of hysterectomy For endometriosis History of cochlear implant History of cholecystectomy Family History Denies family history of Diabetes CAD (coronary artery disease) Cancer Hypertension Stroke Social History Smoking and tobacco/nicotine status: never used tobacco/nicotine Quit status (tobacco/nicotine): has quit using Year quit tobacco: 2014 Former quit date comment: smoked between 30-40 years Alcohol intake: never Substance/Drug Use: never Physical Exam Const: COMMON NORMALS: no acute distress, patient oriented x3, healthy appearing and alert ORIENTATION/CONSCIOUSNESS: Yes awake OTHER: Patient is sitting upright in a vertical flow recliner in no acute distress. She is able to give history with assistance from caregiver. She is interactive with exam appropriately. HENMT: COMMON NORMALS: normocephalic, external ears normal and TM's normal bilaterally (No hemotympanum) HEAD & SCALP: normocephalic; no Parr's sign FACE & SINUS: abrasion on the left forehead and ecchymosis on the left periorbital (supraorbital ) EXTERNAL EAR: Yes external ears normal TYMPANIC MEMBRANE: TM's normal bilaterally (No hemotympanum) Neck/C-Spine: COMMON NORMALS: full ROM CERVICAL SPINE: No Cervical spine tenderness Chest: CHEST: Yes Symmetrical chest wall rise Resp: COMMON NORMALS: normal respiratory effort EFFORT & INSPECTION: Yes able to speak in complete sentences Back/Pelvis: THORACIC SPINE/UPPER BACK: No thoracic spinal tenderness LUMBAR SPINE/LOWER BACK: No lumbar spinal tenderness Extremity: COMMON NORMALS: full ROM RIGHT LOWER EXTREMITY: Yes knee joint Right knee: Yes inspection (Ecchymosis and abrasion noted) and Yes palpation (Generalized tenderness) LEFT LOWER EXTREMITY: Yes knee joint Left knee: Yes palpation (Generalized tenderness) Neuro: COMMON NORMALS: patient oriented x3 SENSORIUM/ORIENTATION: Yes alert Psych: ATTITUDE: Yes calm Course Vital Signs: Vital signs: Vital Signs Temperature 98.0 F 01/02/25 16:51 Pulse Rate 76 01/02/25 16:51 Respiratory Rate 17 01/02/25 16:51 Blood Pressure 124/64 01/02/25 16:51 Pulse Oximetry 98 01/02/25 16:51 Oxygen Delivery Me thod Room Air 01/02/25 16:51 MDM - Head Injury Medcial Decision Making 59yo female presents with caregiver for evaluation following a fall while getting out of the vehicle that occurred at approximately 1300 today. Patient is nontoxic in appearance. Vital signs are stable. No fractures or acute bony abnormalities noted on bilateral knee x-rays. No acute abnormalities noted on CT scan of the head. Discussed findings with patient and caregiver. Advised continuing with acetaminophen to help with pain and headache. Discussed application of a cool compress to help with bruising. Recommend follow-up with primary care, call Monday with an update of symptoms and to discuss a recheck. Return precautions provided. Patient and caregiver state understanding and have no further questions or concerns at this time. Lab Data Radiology Impressions Knee X-Ray 01/02/25 16:36 IMPRESSION: 1. No acute fractures or malalignment. 2. Osteoarthritic changes of the left knee with marginal osteophytes medially but without significant joint space narrowing. Head CT 01/02/25 18:17 IMPRESSION: 1. No acute intracranial abnormality. 2. Redemonstration of the postsurgical changes of right-sided mastoidectomy and cochlear implant. All radiology interpretation(s) finalized by discharge Discharge Plan Discharge Patient Disposition: Home Clinical Impression: Multiple abrasions Fall Qualifiers: Encounter type: initial encounter Qualified Code(s): W19.XXXA - Unspecified fall, initial encounter Bilateral knee pain Qualifiers: Chronicity: acute Qualified Code(s): M25.561 - Pain in right knee Contusion of face Qualifiers: Encounter type: initial encounter Qualified Code(s): S00.83XA - Contusion of other part of head, initial encounter Condition: Stable Prescriptions: No Action naproxen sodium 220 mg tablet 220 mg PO Q8H PRN (Reason: Pain) acetaminophen [Tylenol Extra Strength] 500 mg tablet 1,000 mg PO Q6H PRN carboxymethylcellulose sodium [Refresh Plus] 0.5 % dropperette 1 drp ophthalmic (eye) BID PRN bisacodyl 10 mg suppository 10 mg AR DAILY PRN dorzolamide-timolol 22.3-6.8 mg/mL drops ophthalmic (eye) lamotrigine 200 mg tablet extended release 24hr 200 mg PO DAILY 90 Days Qty: 90 3RF (DME) Fitted Briefs Large Misc See Rx Instructions .Route Qty: 64 12RF Rx Instructions: Please issue adult disposable briefs to use for incontinence of the bowel and bladder. Requires 3 briefs daily, with 1 additional daily for occasional problems such as diarrhea. calcium carbonate-vitamin D3 600 mg-20 mcg (800 unit) tablet 1 tab PO DAILY Qty: 90 3RF hydroxyzine pamoate [Vistaril] 25 mg capsule 25 mg PO BID PRN (Reason: itching) Qty: 10 8RF Rx Instructions: for itching or anxiety anastrozole 1 mg tablet See Rx Instructions .ROUTE .COMPLEX Qty: 90 3RF Dose Instruction: TAKE ONE TABLET BY MOUTH DAILY Rx Instructions: TAKE ONE TABLET BY MOUTH DAILY bismuth subsalicylate [Pepto-Bismol] 262 mg/15 mL suspension See Rx Instructions .ROUTE .COMPLEX Qty: 236 2RF Dose Instruction: TAKE 30ML BY MOUTH EVERY 4 HOURS NEEDED FOR UPSET STOMACH & HEARTBURN Rx Instructions: TAKE 30ML BY MOUTH EVERY 4 HOURS NEEDED FOR UPSET STOMACH & HEARTBURN polyethylene glycol 3350 17 gram/dose powder See Rx Instructions .ROUTE .COMPLEX Qty: 5610 0RF Dose Instruction: dissolve 1 capful (17gm) in 8 ounces of liquid and drink EVERY DAY FOR CONSTIPATION *hold FOR loose stools* Rx Instructions: dissolve 1 capful (17gm) in 8 ounces of liquid and drink EVERY DAY FOR CONSTIPATION *hold FOR loose stools* mirtazapine 30 mg tablet See Rx Instructions .ROUTE .COMPLEX Qty: 30 6RF Dose Instruction: TAKE ONE TABLET BY MOUTH EVERY NIGHT AT BEDTIME FOR DEPRESSION Rx Instructions: TAKE ONE TABLET BY MOUTH EVERY NIGHT AT BEDTIME FOR DEPRESSION pantoprazole 40 mg tablet,delayed release (DR/EC) See Rx Instructions .ROUTE .COMPLEX Qty: 30 11RF Dose Instruction: TAKE ONE TABLET BY MOUTH EVERY DAY FOR REFLUX Rx Instructions: TAKE ONE TABLET BY MOUTH EVERY DAY FOR REFLUX lisinopril 10 mg tablet See Rx Instructions .ROUTE .COMPLEX Qty: 30 11RF Dose Instruction: TAKE ONE TABLET BY MOUTH EVERY DAY FOR HTN *check blood pressure and pulse BEFORE ADMINISTRATION, HOLD and call nurse if bp if < 110/70 OR pulse < 60* Rx Instructions: TAKE ONE TABLET BY MOUTH EVERY DAY FOR HTN *check blood pressure and pulse BEFORE ADMINISTRATION, HOLD and call nurse if bp if < 110/70 OR pulse < 60* montelukast 10 mg tablet See Rx Instructions .ROUTE .COMPLEX Qty: 30 3RF Dose Instruction: TAKE ONE TABLET BY MOUTH EVERY DAY FOR SEASONAL ALLERGY Rx Instructions: TAKE ONE TABLET BY MOUTH EVERY DAY FOR SEASONAL ALLERGY Discharge Orders: Discharge ED (Routine); Ordered 01/02/25 Ordered By: Jared Terrell Referrals: Mat Hamilton DO [Primary Care Provider, Family Practice] Discharge Diet: Usual diet Discharge Activity: Resume usual activity Patient Instructions: Abrasion (ED), Knee Pain (ED), Pain Management Activity Restrictions/Additional Instructions: No fractures noted on the x-rays or CT scan today Wash the abrasions with soap and water, then apply antibiotic ointment Continue with acetaminophen for headache and knee pain Follow-up with primary care, call Monday with an update of symptoms and to discuss a recheck Return to the emergency department if any further injury, rapid worsening symptoms, and as needed Print Language: Persian Coding Level of Care Code ED Welfare Interviewer for Francisco Dorado
== END 2025-01-02 20:03 | disposition home or self-care (01) ==
PROVIDERS: Emergency Provider Nurse Practitioner; PCP Family Medicine
DX: S00.83XA Contusion of other part of head, initial encounter (principal); M25.562 Pain in left knee; M25.561 Pain in right knee; W19.XXXA Unspecified fall, initial encounter; S80.212A Abrasion, left knee, initial encounter; I10 Essential (primary) hypertension; Z85.3 Personal history of malignant neoplasm of breast; Z87.891 Personal history of nicotine dependence
CPT/HCPCS: 70450; 73562; 99284

== ENCOUNTER 2025-05-21 13:09 | Oncology outpatient (recurring) (ONCR) | payer MEDICARE, MEDICAID, SELFPAY ==
--- NOTE | 2025-05-21 13:30 | MM_ITS ---
WS: [id number] BILATERAL 3D TOMOSYNTHESIS DIGITAL DIAGNOSTIC MAMMOGRAPHY WITH CAD CLINICAL INFORMATION: C50.812 - Malignant neoplasm of overlapping sites of left... HISTORY: History of LEFT breast cancer COMPARISON: 05/15/2024 TECHNIQUE: Bilateral CC, MLO, and ML views. FINDINGS: The breasts are composed of heterogeneous fibroglandular density, which can limit the detection of small underlying mass lesions. Prior postoperative changes LEFT lumpectomy with parenchymal fibrosis. A few incidental punctate calcifications. No suspicious focal mass, asymmetry, calcifications, or architectural distortion. No evidence of malignancy. MM/MM diag tomosynthesis [id number] IMPRESSION: DENSITY: The breasts are heterogeneously dense, which may obscure small masses. BI-RADS: 2 - Benign FOLLOW UP: 1 Year Follow-up Recommend return to annual diagnostic mammography.
== END 2025-06-06 23:59 | disposition home or self-care (01) ==
LOC: ONCMED 13:10
PROVIDERS: PCP Family Medicine; Visit Provider Internal Medicine Medical Oncology
DX: Z53.9 Procedure and treatment not carried out, unspecified reason (principal); Z78.0 Asymptomatic menopausal state; M85.9 Disorder of bone density and structure, unspecified; C50.812 Malignant neoplasm of overlapping sites of left female breast; Z17.0 Estrogen receptor positive status [ER+]; Z92.3 Personal history of irradiation; Z79.818 Long term (current) use of other agents affecting estrogen receptors and estrogen levels
CPT/HCPCS: 77062; G0279

== ENCOUNTER 2025-06-17 11:03 | Oncology outpatient (recurring) (ONCR) | payer MEDICARE, MEDICAID, SELFPAY ==
[2025-06-17 11:38] LABS: Hematocrit 41.6 % (36-47); Hemoglobin 13.70 g/dL (11.27-16.99); Mean Corpuscular HGB Conc 32.9 g/dL (30-55); Mean Corpuscular Hemoglobin 28.3 pg (27-33); Mean Corpuscular Volume 86.0 fl (85-98); Nucleated Red Blood Cells % 0 %; Platelet Count 281 10^3/cmm (157-399); Red Blood Count 4.84 10^6/uL (3.85-5.65); White Blood Count 7.06 10^3/uL (3.29-11.43)
[2025-06-17 11:55] LABS: Alanine Aminotransferase 15 U/L (0-33); Albumin Level 4.6 g/dL (3.5-5.2); Alkaline Phosphatase 81 U/L (35-105); Anion Gap 14.7 (5-19); Aspartate Amino Transferase 14 U/L (0-32); Blood Urea Nitrogen 11 mg/dL (8-23); Calcium 10.3 mg/dL (8.5-10.5); Carbon Dioxide 27 mmol/L (22-29); Chloride 104 mmol/L (98-107); Globulin 2.8 g/dL (1.3-4.6); Glucose 81 mg/dL (65-115); Osmolality Calculated 292 mOsm/kg (285-295); Potassium 3.7 mmol/L (3.5-5.1); Sodium 142 mmol/L (136-145); Total Protein 7.4 g/dL (6.6-8.7)
== END 2025-07-06 23:59 | disposition home or self-care (01) ==
PROVIDERS: Internal Medicine Medical Oncology; PCP Family Medicine; Visit Provider Nurse Practitioner Family
DX: C50.812 Malignant neoplasm of overlapping sites of left female breast (principal); Z17.0 Estrogen receptor positive status [ER+]; Z92.3 Personal history of irradiation; Z79.818 Long term (current) use of other agents affecting estrogen receptors and estrogen levels; Z79.899 Other long term (current) drug therapy
CPT/HCPCS: 36415; 80053; 85025; 99213